=== PATIENT | female | born 1935 | race Caucasian/White ===

== ENCOUNTER → 2018-01-03 07:39 | Outpatient (CLI) | payer OTHER, SELFPAY ==
[2018-01-03 10:14] LABS: BUN Creatinine Ratio 33.8 (6-22); Blood Urea Nitrogen 27 mg/dL (7-17); Estimated Glomerular Filt Rate > 60.0 mL/min (>60)
== END ==
PROVIDERS: PCP Family Medicine; Visit Provider Internal Medicine
DX: H53.9 Unspecified visual disturbance (principal); Z01.812 Encounter for preprocedural laboratory examination
CPT/HCPCS: 36415; 82565; 84520

== ENCOUNTER → 2018-01-04 06:45 | Outpatient (CLI) | payer OTHER, SELFPAY ==
--- NOTE | 2018-01-04 06:46 | DI.MRI.S_ITS ---
PROCEDURE: MR HEAD/BRAIN WO/W CON INDICATIONS: visual changes and headaches TECHNIQUE: Noncontrast axial T1 spin echo, axial T2 fast spin echo, sagittal and axial FLAIR, coronal T2 fast spin echo, axial gradient echo, axial diffusion and ADC through the brain. After the administration of contrast, axial and coronal 3D VIBE or T1 spin echo with fat saturation through the brain. COMPARISON: None. FINDINGS: Image quality: Excellent. CSF Spaces: Basal cisterns are patent. No extra-axial fluid collections. Ventricles are normal in size and shape. There is an extra-axial mass along the anterior falx mostly right of midline which measures 4.1 x 2.9 x 4.0 CM exerting mass effect upon the surrounding brain parenchyma with no underlying edema. It demonstrates isointense T1 and T2 signal and homogeneous internal enhancement. There are several small foci of signal loss on gradient imaging. Brain: No midline shift. No acute intracranial bleeds or masses. No abnormal intracranial enhancement. The brainstem appears normal. Diffusion-weighted images demonstrate no acute ischemic insults. Foci of increased T2 signal in the subcortical and periventricular white matter. Normal intravascular flow voids are present. Skull and face: Calvarial marrow is normal in signal. Orbits appear normal. Sinuses: Sinuses and mastoids appear clear. IMPRESSION: 1. Large extra-axial mass along the falx between the frontal lobes is most consistent with a meningioma. Metastasis is possible. There is no edema or abnormal enhancement in the adjacent brain parenchyma to suggest invasion. There is moderate mass effect in the frontal lobes right greater than left. 2. Increased T2 signal in the subcortical and periventricular white matter most consistent with chronic benign ischemic change. Dictated by: Don Duong M.D. on 01/04/2018 at 12:12 Approved by: Don Duong M.D. on 01/04/2018 at 12:19
== END ==
PROVIDERS: Family Provider Family Medicine; PCP Family Medicine; Visit Provider Internal Medicine
DX: H53.9 Unspecified visual disturbance (principal); R51 Headache; R93.8 Abnormal findings on diagnostic imaging of other specified body structures
CPT/HCPCS: 70553; A9579

== ENCOUNTER 2018-02-13 16:29 | Emergency (ER) | payer OTHER, SELFPAY ==
[2018-02-13] VITALS (7 sets, daily range): BP systolic 139–194; BP diastolic 71–93; PULSE 80–90; RESP 15–18; TEMP 36.9; O2SAT 93–98; BMI 25.7
--- NOTE | 2018-02-13 17:15 | DI.CT.S_ITS ---
PROCEDURE: CT HEAD/BRAIN WO CON INDICATIONS: severe EDWARDS, vomiting. meningioma resection last week, chante TECHNIQUE: Noncontrast 4.5 mm thick angled axial sections acquired from the foramen magnum to the vertex, with coronal and sagittal reformats. For radiation dose reduction, the following was used: automated exposure control, adjustment of mA and/or kV according to patient size. COMPARISON: None. FINDINGS: Image quality: Excellent. CSF spaces: Acute subdural hematoma underlying the right frontal postoperative site with mild increased density in the remaining CSF possibly representing bilateral subacute subdural hematomas. Brain: Changes of interval meningioma resection with acute hemorrhage in the anterior interhemispheric postoperative site. Foci of increased density in the bilateral frontal lobe white matter. No masses. Skull and face: Calvarium and visualized facial bones are intact, without suspicious lesions. Sinuses: Visualized sinuses and mastoids are clear. IMPRESSION: 1. Interval interhemispheric meningioma removal which by report took place one week prior. There are acute blood products at the postoperative site. Further acute subdural hematoma underlying the right frontal craniotomy site. Increased density throughout the CSF may represent bilateral subacute subdural hematomas. 2. Foci of decreased density in the bilateral frontal white matter may represent edema, postoperative change, or encephalomalacia. 3. No brain parenchyma herniation. 4. Findings discussed by telephone ([phone]) with Dr. Lr of the emergency department at 17:50 on 02/13/2018. Dictated by: Don Duong M.D. on 02/13/2018 at 17:44 Approved by: Don Duong M.D. on 02/13/2018 at 18:02
--- NOTE | 2018-02-13 17:51 | ED.NAVMDI ---
HPI - Nausea/Vomiting/Diarrhea General Chief complaint: Nausea/Vomiting/Diarrhea Stated complaint: N/V SP BRAIN SURGERY 02/08/18 Time Seen by Provider: 02/13/18 16:40 Source: patient and family Mode of arrival: ambulatory Limitations: no limitations History of Present Illness HPI Narrative: 82-year-old female with history of meningioma status post surgical resection on February 08 presents with gradually worsening severe headache over the course of the day intractable vomiting. The patient contacted her surgeons who directed her to the closest facility for evaluation. She denies any focal neurologic findings such as blurred vision, facial weakness or numbness and tingling her extremities. She takes no blood thinners. MD complaint: nausea and vomiting Onset (ago): hour(s) Related Data Home Medications Medication Instructions Recorded Confirmed aspirin 81 mg PO QPM #0 03/20/17 02/13/18 Vitamin C 1 tab PO DAILY 02/13/18 02/13/18 Vitamin D3 1 cap PO DAILY 02/13/18 02/13/18 ibuprofen 600 mg PO Q6HP PRN 02/13/18 02/13/18 latanoprost 1 drp OPHTHALMIC (EYE) BEDTIME 02/13/18 02/13/18 multivitamin 1 tab PO DAILY 02/13/18 02/13/18 Previous Rx's Medication Instructions Recorded valsartan [Diovan] 40 mg PO QDAY #90 tab 08/22/17 Allergies Allergy/AdvReac Type Severity Reaction Status Date / Time latex [LATEX] Allergy Unknown Unverified 01/04/18 16:37 levofloxacin [LEVOFLOXACIN] Allergy Unknown Unverified 01/04/18 16:37 gandolium MRI dye Allergy Uncoded 02/13/18 19:02 Review of Systems Review of Systems All systems reviewed & are unremarkable except as noted in HPI and below Constitutional Denies chills, Denies fever(s), Denies lethargy and Denies weakness Eyes Denies change in vision, Denies eye discharge, Denies irritation and Denies loss of vision ENT Ears, Nose, Mouth, and Throat: Denies change in voice, Denies neck pain and Denies sore throat Cardiovascular Denies chest pain, Denies irregular heart rhythm, Denies lightheadedness, Denies palpitations, Denies dyspnea, Denies dyspnea on exertion and Denies orthopnea Respiratory Denies cough, Denies dyspnea, Denies dyspnea on exertion and Denies wheezing Gastrointestinal Gastrointestinal: Denies abdominal pain, Denies change in bowel habits, Denies diarrhea, Reports nausea and Reports vomiting Genitourinary Denies hematuria, Denies flank pain, Denies urinary incontinence and Denies urinary urgency Musculoskeletal Denies neck pain Integumentary/Breasts Denies pruritus, Denies erythema, Denies rash and Denies wounds Neurologic Denies confusion, Denies loss of vision and Denies weakness Psychiatric Denies anxiety, Denies confusion, Denies depression, Denies homicidal ideation and Denies suicidal ideation Endocrine Denies palpitations Hematologic/Lymphatic Denies easy bruising Allergic/Immunologic Denies wheezing [facility] Social History household members: spouse Smoking Status: Former smoker Exam Initial Vital Signs Initial Vital Signs: Vital Signs Temperature 98.5 F 02/13/18 16:59 Pulse Rate 85 02/13/18 16:59 Respiratory Rate 18 02/13/18 16:59 Blood Pressure 194/93 H 02/13/18 16:59 Pulse Oximetry 98 02/13/18 16:59 Const General: cooperative and well developed Nutritional Appearance: well nourished Orientation: alert, awake, oriented x3 and not confused HENNH Head: other (Incision is clean, dry and intact. No drainage) Ears: external ears normal and TM's normal bilaterally Nose: external nose normal and No nasal discharge Face and sinus: sinuses nontender, face symmetric, no sinus tenderness and No dry mucous membranes Mouth: oral mucosae normal and moist mucous membranes Teeth and gingiva: dentition normal Throat: tonsils normal and uvula midline Eyes General: appearance normal, both eyes and all related structures Eyelids: eyelids normal Conjunctivae: conjunctivae normal Sclera: sclerae normal Pupils: PERRL EOM: EOM intact bilaterally Neck Neck: normal visual inspection, trachea midline, No lymphadenopathy, No midline deformity and No JVD Lymphatic: No lymphedema Chest Chest: normal inspection of the chest Resp Effort & Inspection: normal respiratory effort, able to speak in complete sentences, no respiratory distress and no use of accessory muscles Auscultation: clear to auscultation bilaterally, no rales, no rhonchi and no wheezes Cardio Rate: regular rate Rhythm: regular rhythm Heart Sounds: no click, no gallops, no murmurs and no rubs Pulses: normal peripheral pulses GI Inspection: non-distended Palpation: soft, no hepatosplenomegaly, No guarding, No pulsatile mass and No tender Auscultation: normal bowel sounds Back/Spine/Pelvis Back: No CVA tenderness Cervical Spine: cervical ROM normal and No pain with cervical ROM Thoracic/Lumbar Spine: thoracic and lumbar spine normal to inspection Skin General: no rashes or lesions noted, No jaundice and No petechiae Neuro General: alert, oriented x3, gait normal and no focal motor deficits Speech: speech normal Extrem General: full ROM, no clubbing, cyanosis or edema, no pedal edema and no calf tenderness Psych Appearance: well kempt Mental Status: mental status grossly normal Attitude: cooperative Thought Content: normal and suicidality Judgment: judgment good Course Orders Ordered: ED Orders 02/13/18 17:15 CT head/brain wo con Stat 02/13/18 18:00 Basic Metabolic Panel Stat Complete Blood Count AUTO DIFF Stat Nicardipine HCl 25 mg/ Sodium (Chloride) 250 mls @ 50 mls/hr IV TITRATE KATIA; Protocol Last Titration: 02/13/18 19:47 Dose: 10 mg/hr, 100 mls/hr Titration: 02/13/18 19:35 Dose: 7.5 mg/hr, 75 mls/hr Admin: 02/13/18 19:09 Dose: 5 mg/hr, 50 mls/hr Sodium Chloride (Normal Saline 0.9%) 1,000 mls @ 100 mls/hr IV CONT KATIA Last Infusion: 02/13/18 19:19 Dose: 0 mls/hr Admin: 02/13/18 19:06 Dose: 100 mls/hr Discontinued Medications Ondansetron HCl (Zofran) 4 mg IV NOW ONE Stop: 02/13/18 17:58 Last Admin: 02/13/18 18:05 Dose: 4 mg Consultations Consultation #1: Immediately upon receipt of head CT a call placed to the [facility] transfer center. [facility] put on standby. Request to get patient coming to [facility] regardless of bed status but asked to wait for neurosurgeon and bed status. Neurosurgery is happy to accept. They request Nicardipine drip and strict BP control < 140. This dictates admission to Neuro ICU. [facility] is happy to accept. Awaiting bed assignment Time: 18:29 Consultation #2: Bed [id number] assigned. ALBobyW at bedside loading patient. Time: 19:55 Vital Signs - 8 hr 02/13/18 16:59 02/13/18 17:15 02/13/18 18:01 Temperature 98.5 F Pulse Rate 85 82 83 Respiratory Rate 18 18 18 Blood Pressure 194/93 H Blood Pressure [Left Arm] 168/83 H Blood Pressure [Right Arm] 154/88 H Pulse Oximetry 98 97 98 02/13/18 18:35 02/13/18 19:08 02/13/18 19:47 Temperature Pulse Rate 81 80 90 Respiratory Rate 18 15 16 Blood Pressure Blood Pressure [Left Arm] 174/87 H 155/76 H 139/71 H Blood Pressure [Right Arm] Pulse Oximetry 97 93 97 MDM - Nausea/Vomiting/Diarrhea Medical Records Attestation: I reviewed the patient's medical records. Lab Data Result diagrams: 02/13/18 18:00 02/13/18 18:00 Lab Results 02/13/18 02/13/18 Range/Units 18:00 18:00 WBC 6.6 (4.5-11.0) X10^3/uL RBC 4.06 (4.0-5.2) X10^6/uL Hgb 12.6 (12.0-16.0) g/dL Hct 36.9 (36-46) % MCV 90.7 (80-100) fL MCH 31.0 (26-34) PG MCHC 34.2 (30-36) % RDW 13.7 (11.6-14.8) % Plt Count 202 (150-400) X10^3/uL Neut % (Auto) 79.3 H (50-75) % Lymph % (Auto) 14.1 L (25-40) % Otoe % (Auto) 5.7 (3-14) % Eos % (Auto) 0.5 L (2-4) % Baso % (Auto) 0.4 (0-2) % Neut # (Auto) 5200 (5330-3882) /uL Sodium 139 (137-145) mmol/L Potassium 4.1 (3.4-5.1) mmol/L Chloride 97 L (98-107) mmol/L Carbon Dioxide 31 (22-32) mmol/L BUN 21 H (7-17) mg/dL Creatinine 0.70 (0.52-1.04) mg/dL Estimated GFR > 60.0 (>60) mL/min BUN/Creatinine Ratio 30.0 H (6-22) Glucose 132 H (80-110) mg/dL Calcium 9.3 (8.4-10.2) mg/dL Imaging Data CT scan - head: Radiologist's impression: PROCEDURE: CT HEAD/BRAIN WO CON INDICATIONS: severe EDWARDS, vomiting. meningioma resection last week, chante TECHNIQUE: Noncontrast 4.5 mm thick angled axial sections acquired from the foramen magnum to the vertex, with coronal and sagittal reformats. For radiation dose reduction, the following was used: automated exposure control, adjustment of mA and/or kV according to patient size. COMPARISON: None. FINDINGS: Image quality: Excellent. CSF spaces: Acute subdural hematoma underlying the right frontal postoperative site with mild increased density in the remaining CSF possibly representing bilateral subacute subdural hematomas. Brain: Changes of interval meningioma resection with acute hemorrhage in the anterior interhemispheric postoperative site. Foci of increased density in the bilateral frontal lobe white matter. No masses. Skull and face: Calvarium and visualized facial bones are intact, without suspicious lesions. Sinuses: Visualized sinuses and mastoids are clear. IMPRESSION: 1. Interval interhemispheric meningioma removal which by report took place one week prior. There are acute blood products at the postoperative site. Further acute subdural hematoma underlying the right frontal craniotomy site. Increased density throughout the CSF may represent bilateral subacute subdural hematomas. 2. Foci of decreased density in the bilateral frontal white matter may represent edema, postoperative change, or encephalomalacia. 3. No brain parenchyma herniation. 4. Findings discussed by telephone ([phone]) with Dr. Lr of the emergency department at 17:50 on 02/13/2018. Dictated by: Don Duong M.D. on 02/13/2018 at 17:44 Approved by: Don Duong M.D. on 02/13/2018 at 18:02 Critical Care Time Critical Care Time: Yes Total Critical Care Time: 60 Attestation: The high probability of a clinically significant, sudden or life threatening deterioration of the [neurologic] system(s) required my full and direct attention, intervention and personal management. The aggregate critical care time was [60] minutes. This time is in addition to time spent performing reported procedures but includes the following: [x] Data Review and interpretation [x] Patient assessment and monitoring of vital signs [x] Documentation [x] Medication orders and management Discharge Plan Departure Patient Disposition: [facility] Clinical Impression: Acute subdural hematoma Prescriptions: No Action aspirin 81 MG tablet,delayed release (DR/EC) 81 mg PO QPM Qty: 0 RF: 0 valsartan [Diovan] 40 MG tablet 40 mg PO QDAY Qty: 90 RF: 3 multivitamin Tablet 1 tab PO DAILY RF: 0 latanoprost 0.005 % Drops 1 drp ophthalmic (eye) BEDTIME RF: 0 Vitamin C 1 tab PO DAILY RF: 0 Vitamin D3 1 cap PO DAILY RF: 0 ibuprofen 600 MG tablet 600 mg PO Q6HP PRN (Reason: Pain, Mild) RF: 0
[2018-02-13] MEDS: ONDANSETRON 4 MG/2 ML INJ IV (18:05)
[2018-02-13 18:08] LABS: Add Manual Diff / Slide Review NO; Basophils Percent Auto 0.4 % (0-2); Eosinophils Percent Auto 0.5 % (2-4); Hematocrit 36.9 % (36-46); Hemoglobin 12.6 g/dL (12.0-16.0); Lymphocytes Percent Auto 14.1 % (25-40); Mean Corpuscular HGB Conc 34.2 % (30-36); Mean Corpuscular Volume 90.7 fL (80-100); Monocytes Percent Auto 5.7 % (3-14); Neutrophils Absolute Auto 5200 /uL (3000-5900); Neutrophils Percent Auto 79.3 % (50-75); Platelet Count 202 X10^3/uL (150-400); Red Blood Cell Count 4.06 X10^6/uL (4.0-5.2); Red Cell Distribution Width 13.7 % (11.6-14.8); White Blood Cell Count 6.6 X10^3/uL (4.5-11.0)
[2018-02-13 18:20] LABS: Blood Urea Nitrogen 21 mg/dL (7-17); Calcium 9.3 mg/dL (8.4-10.2); Carbon Dioxide 31 mmol/L (22-32); Chloride 97 mmol/L (98-107); Estimated Glomerular Filt Rate > 60.0 mL/min (>60); Glucose 132 mg/dL (80-110); HEMOLYSIS < 15 (0-50); Potassium 4.1 mmol/L (3.4-5.1); Sodium 139 mmol/L (137-145)
--- NOTE | 2018-02-13 19:02 | PC.NURSE ---
pt is resting in bed with and son at side. IVF infusing TKO. pt has not had any nausea or vomiting episodes after being situated in bed on arrival. Small amount of bile in emesis bag when pt entered department. Advised she will be taken via airlift to a hosp in [place] regarding her positive head CT. pt denies any further questions at this time
[2018-02-13] MEDS: SODIUM CHLORIDE 0.9% 1,000 ML 100 ML IV (19:06)
[2018-02-13] MEDS: NICARDIPINE 25 MG in SODIUM CHLORIDE 0.9% 240 ML 50 ML IV (19:09)
--- NOTE | 2018-02-13 19:52 | PC.NURSE ---
BP at goal of under 140 sys. Current BP 139/71 HR 90. pt tolerating well. Airlift in ED for transfer
== END 2018-02-13 20:20 | disposition short-term general hospital (02) ==
PROVIDERS: Emergency Provider Emergency Medicine; Family Provider Family Medicine; PCP Family Medicine
DX: S06.5X9A Traumatic subdural hemorrhage with loss of consciousness of unspecified duration, initial encounter (principal); Z98.890 Other specified postprocedural states
CPT/HCPCS: 36591; 70450; 80048; 85025; 96365; 96375; 99284; J2405

== ENCOUNTER → 2018-02-16 09:05 | Outpatient (CLI) | payer OTHER, SELFPAY | PROVIDERS: Family Provider Family Medicine; PCP Family Medicine; Visit Provider Family Medicine | DX: R94.31 Abnormal electrocardiogram [ECG] [EKG] (principal) | CPT/HCPCS: 93005 ==

== ENCOUNTER → 2018-03-01 09:26 | Outpatient (CLI) | payer OTHER, SELFPAY ==
--- NOTE | 2018-03-01 09:28 | DI.ECHO.S_ITS ---
[facility]---------+ [facility] +---------+ : : [address] : : : : [id number] : : : : Phone: [phone] Echocardiogram Report + + :Name: EJ BRAUN Study Date: 03/01/2018 Height: 63 in : :[facility] Weight: 145 lb : : Gender: Female BSA: 1.7 m2 : :: 1935 Age: 82 yrs BP: 146/80 mmHg: :Reason For Study: Conduction Disorder, LBBB : : Performed By: Pushpa Owen : :Referring: GABE LEY : + + Interpretation Summary 1. Normal left ventricular size and wall thickness with an estimated EF of 45 to 50% 2. Normal right ventricular size and systolic function. The estimated RVSP is 27 mm Hg. The estimated right atrial pressure is low. 3. No evidence for significant valvular pathology. There is no old study available for review. Procedure: A two-dimensional transthoracic echocardiogram with color flow and Doppler was performed. The study quality was technically adequate. There is no prior echocardiogram noted for this patient. The heart rate ranged between 71-76 bpm during the study. Left Ventricle: The left ventricle is normal in size. There is normal left ventricular wall thickness. The ejection fraction is estimated to be 45-50%. Septal motion is consistent with conduction abnormality. Assessment of diastolic parameters indicates a relaxation abnormality of the left ventricle, consistent with normal filling pressures. Right Ventricle: The right ventricle is normal in size and function. Atria: The left atrial size is normal. Right atrial size is normal. The interatrial septum is intact with no evidence for an atrial septal defect. Mitral Valve: The mitral valve leaflets appear mildly thickened, but open well. There is mild mitral annular calcification. There is mild mitral regurgitation. Aortic Valve: The aortic valve is trileaflet. The aortic valve opens well. The aortic valve is mildly calcified. No aortic regurgitation is present. Tricuspid Valve: The tricuspid valve leaflets are thin and pliable. There is moderate tricuspid regurgitation. The right ventricular systolic pressure is estimated at 27 mmHg assuming a right atrial pressure of 3 mm Hg. Pulmonic Valve: The pulmonic valve is not well seen, but is grossly normal. There is trace pulmonic regurgitation. Great Vessels: The aortic root is normal size. The ascending aorta is mildly enlarged. The IVC is of normal diameter and collapses greater than 50% with a sniff. This suggests a low right atrial pressure of 3 mm Hg. Pericardium/ Pleura There is no pericardial effusion. There is no pleural effusion. MMode/2D Measurements & Calculations LVIDd: 4.3 cm Ao root diam: 3.1 cm LVIDs: 3.4 cm Aortic Jxn: 2.6 cm FS: 19.9 % asc Aorta Diam: 3.9 cm EPSS: 0.88 cm Ao Arch Diam (Prox Trans): 2.3 cm IVSd: 0.87 cm LVPWd: 0.95 cm LV elaine. diameter/BSA (cm/m^2): 2.5 LV sys. diameter/BSA (cm/m^2): 2.0 LA dimension: 2.9 cm RA long axis: 4.7 cm LA A2 area: 19.7 cm2 RA area: 15.2 cm2 LA A4 area: 14.3 cm2 RA vol: 42.2 ml LA length (vol): 4.8 cm RA : 25.0 ml/m2 LA vol: 49.9 ml IVC diam: 1.5 cm LA vol index: 29.6 ml/m2 RVDd major: 5.9 cm RVD1 (basal): 3.1 cm RVD2 (mid): 2.6 cm Doppler Measurements & Calculations Ao V2 max: 148.4 cm/sec MV E max emmanuel: 75.0 cm/sec Ao V2 mean: 102.4 cm/sec MV A max emmanuel: 113.7 cm/sec Ao max P.8 mmHg MV E/A: 0.66 Ao mean P.7 mmHg Med Peak E' Emmanuel: 4.9 cm/sec Ao V2 VTI: 29.5 cm E/E' med: 15.2 Lat Peak E' Emmanuel: 5.3 cm/sec E/E' lat: 14.3 E/e' average: 14.7 MV dec time: 0.25 sec MV P1/2t: 75.2 msec TR max emmanuel: 243.3 cm/sec MV P1/2t max emmanuel: 73.7 cm/sec TR max P.7 mmHg MVA(P1/2t): 2.9 cm2 PA V2 max: 89.1 cm/sec PA V2 mean: 57.6 cm/sec PA mean P.5 mmHg PA Accel Time: 0.10 sec Reading Physician:IAM
== END ==
PROVIDERS: Family Provider Family Medicine; PCP Family Medicine; Visit Provider Family Medicine
DX: I44.7 Left bundle-branch block, unspecified (principal); I08.1 Rheumatic disorders of both mitral and tricuspid valves
CPT/HCPCS: 93306

== ENCOUNTER 2018-08-12 17:11 | Emergency (ER) | payer OTHER, MEDICARE, SELFPAY ==
[2018-08-12 17:28] VITALS: BP 126/80; PULSE 110; RESP 20; TEMP 36.5; O2SAT 98; BMI 25.7
--- NOTE | 2018-08-12 18:01 | ED.SKABFB ---
HPI - Skin/Abscess/Foreign Bdy <Renetta Aragon, REHABILITATION COUNSELLOR-BC - Last Filed: 08/12/18 21:16> General Chief complaint: Skin/Abscess/Foreign Body Stated complaint: RASH ALL OVER HER BODY,CRAMPS,UNCOMFORTABLE Time Seen by Provider: 08/12/18 17:44 Source: patient and family Mode of arrival: ambulatory Limitations: no limitations History of Present Illness HPI narrative: Patient is an 82-year-old female former smoker with history of meningioma as well as subdural hematoma who presents with a chief complaint of a rash all over her body, lower abdominal cramping, chest pain that started 30 min ago and low-grade fevers. She states she noted low-grade fever starting last night the 99-100 degree range. She states that she started having a rash originating from her left axilla for going throughout her body throughout the entire day. She states it is similar to previous allergic reaction but she denies any new creams or lotions soaps etc. She denies any new food exposure medication exposure. She states the rash is very itchy. She has not taken anything other than topical Benadryl, which helped for short amount of time. She also complains of lower abdominal cramping that started last night as well as mucousy loose bowel movements. She also complains of chest pain that started 30 min ago, which she attributes to anxiety at this point time. Chest pain is nonradiating and rated a 2/10. She denies any nausea or vomiting. She denies any cough congestion or shortness of breath. She denies any dysuria urgency or frequency. Related Data Home Medications Medication Instructions Recorded Confirmed aspirin 81 mg PO QPM #0 03/20/17 03/27/18 Vitamin C 1 tab PO DAILY 02/13/18 03/27/18 Vitamin D3 1 cap PO DAILY 02/13/18 03/27/18 ibuprofen 600 mg PO Q6HP PRN 02/13/18 03/27/18 latanoprost 1 drp OPHTHALMIC (EYE) BEDTIME 02/13/18 03/27/18 multivitamin 1 tab PO DAILY 02/13/18 03/27/18 Previous Rx's Medication Instructions Recorded valsartan [Diovan] 40 mg PO QDAY #90 tab 08/22/17 lisinopril 20 mg tablet 20 mg PO DAILY #90 tab 02/20/18 fluconazole 150 mg tablet 150 mg PO ONCE #2 tab 03/20/18 prednisone 40 mg PO DAILY 4 Days #8 tab 08/12/18 Allergies Allergy/AdvReac Type Severity Reaction Status Date / Time latex [LATEX] Allergy Unknown Verified 08/12/18 17:27 levofloxacin [LEVOFLOXACIN] Allergy Unknown Verified 08/12/18 17:27 gandolium MRI dye Allergy Uncoded 08/12/18 17:27 Review of Systems <SIXTO Park - Last Filed: 08/12/18 21:16> Review of Systems GENERAL: Denies chills, fatigue, malaise, fever, sweats. HEENT: Denies sinus pain, ear pain, sore throat, difficulty swallowing, dizziness. RESPIRATORY: See HPI CARDIOVASCULAR: See HPI GASTROINTESTINAL: See HPI : Denies dysuria, frequency, incontinence, hematuria, urinary retention. MUSCULOSKELETAL: denies weakness, joint pain, or bony pain SKIN: See HPI NEUROLOGIC: Denies weakness, headache, numbness, change in speech, confusion, seizures, incoordination. PSYCHIATRIC: No concerning psychosocial issues. 12 point review of systems is negative except for those stated above Exam <SIXTO Park - Last Filed: 08/12/18 21:16> Narrative Exam Narrative: GENERAL: This is a well-nourished, well-developed patient, lying on stretcher HEAD: Atraumatic. Normocephalic. No temporal or scalp tenderness. EYES: Pupils equal round and reactive. Extraocular motions intact. No scleral icterus. No injection or drainage. ENT: Nose without bleeding, purulent drainage or septal hematoma. Throat without erythema, tonsillar hypertrophy or exudate. Uvula midline. Airway patent. NECK: Trachea midline. No JVD or lymphadenopathy. Supple, nontender, no meningeal signs. CARDIOVASCULAR: Regular rate and rhythm without murmurs, gallops, or rubs. RESPIRATORY: Clear to auscultation. Breath sounds equal bilaterally. No wheezes, rales, or rhonchi. No increased respiratory effort. No cough on exam. GASTROINTESTINAL: Abdomen soft, , nondistended. No hepato-splenomegaly, or palpable masses. No guarding. Active bowel sounds all 4 quadrants. Diffuse tenderness suprapubic area. EXTREMITIES: No clubbing, cyanosis, or edema. No joint tenderness, effusion, or edema noted. BACK: Nontender without deformity or crepitance. No flank tenderness. NEURO: AOx3. SKIN: uticaria noted over bilateral arms, trunk bilateral legs. Initial Vital Signs Initial Vital Signs: Vital Signs Temperature 97.7 F 08/12/18 17:28 Pulse Rate 110 H 08/12/18 17:28 Respiratory Rate 08/12/18 17:28 Blood Pressure 126/80 08/12/18 17:28 Pulse Oximetry 98 08/12/18 17:28 <Marylin Garcia DO - Last Filed: 08/12/18 23:07> Initial Vital Signs Initial Vital Signs: Vital Signs Temperature 97.7 F 08/12/18 17:28 Pulse Rate 110 H 08/12/18 17:28 Respiratory Rate 08/12/18 17:28 Blood Pressure 126/80 08/12/18 17:28 Pulse Oximetry 98 08/12/18 17:28 Course <SANGEETA Park-BC - Last Filed: 08/12/18 21:16> Orders Ordered: ED Orders 08/12/18 17:56 EKG-12 Lead Stat 08/12/18 18:05 Amylase Stat Complete Blood Count AUTO DIFF Stat Comprehensive Metabolic Panel Stat Lipase Stat Prothrombin Time INR Stat Troponin & CK Cardiac Panel Stat 08/12/18 19:14 Urine Microscopic Stat Discontinued Medications Diphenhydramine HCl (Benadryl) 25 mg IV NOW ONE Stop: 08/12/18 18:01 Last Admin: 08/12/18 18:16 Dose: 25 mg Famotidine (Pepcid) 20 mg in 50 mls @ 200 mls/hr IV NOW ONE Stop: 08/12/18 18:14 Last Infusion: 08/12/18 18:30 Dose: 0 mls/hr Admin: 08/12/18 18:16 Dose: 200 mls/hr Methylprednisolone (Solu-Medrol 125 Mg Vial) 125 mg IV NOW ONE Stop: 08/12/18 18:01 Last Admin: 08/12/18 18:16 Dose: 125 mg Reevaluation(s) Reevaluation #1: Patient states that hives have improved after administration of Solu-Medrol, Benadryl and Pepcid. Discussed waiting for lab results. Patient denies any needs at this point time. Time: 18:40 Vital Signs - 8 hr 08/12/18 17:28 08/12/18 18:23 08/12/18 19:42 Temperature 97.7 F 98.7 F Pulse Rate 110 H 81 79 Respiratory Rate 20 18 16 Blood Pressure 126/80 Blood Pressure [Right Arm] 117/70 117/63 Pulse Oximetry 98 97 97 08/12/18 20:46 Temperature 98.4 F Pulse Rate 86 Respiratory Rate 16 Blood Pressure 118/77 Blood Pressure [Right Arm] Pulse Oximetry 97 <Marylin Garcia DO - Last Filed: 08/12/18 23:07> Orders Ordered: ED Orders 08/12/18 17:56 EKG-12 Lead Stat 08/12/18 18:05 Amylase Stat Complete Blood Count AUTO DIFF Stat Comprehensive Metabolic Panel Stat Lipase Stat Prothrombin Time INR Stat Troponin & CK Cardiac Panel Stat 08/12/18 19:14 Urine Microscopic Stat Discontinued Medications Diphenhydramine HCl (Benadryl) 25 mg IV NOW ONE Stop: 08/12/18 18:01 Last Admin: 08/12/18 18:16 Dose: 25 mg Famotidine (Pepcid) 20 mg in 50 mls @ 200 mls/hr IV NOW ONE Stop: 08/12/18 18:14 Last Infusion: 08/12/18 18:30 Dose: 0 mls/hr Admin: 08/12/18 18:16 Dose: 200 mls/hr Methylprednisolone (Solu-Medrol 125 Mg Vial) 125 mg IV NOW ONE Stop: 08/12/18 18:01 Last Admin: 08/12/18 18:16 Dose: 125 mg Vital Signs - 8 hr 08/12/18 17:28 08/12/18 18:23 08/12/18 19:42 Temperature 97.7 F 98.7 F Pulse Rate 110 H 81 79 Respiratory Rate 20 18 16 Blood Pressure 126/80 Blood Pressure [Right Arm] 117/70 117/63 Pulse Oximetry 98 97 97 08/12/18 20:46 Temperature 98.4 F Pulse Rate 86 Respiratory Rate 16 Blood Pressure 118/77 Blood Pressure [Right Arm] Pulse Oximetry 97 MDM - Skin/Abscess/Foreign Bdy <AKASH Park - Last Filed: 08/12/18 21:16> Lab Data Result diagrams: 08/12/18 18:05 08/12/18 18:05 Lab Results 08/12/18 08/12/18 08/12/18 Range/Units 18:05 18:05 18:05 WBC 9.7 (4.5-11.0) X10^3/uL RBC 4.35 (4.0-5.2) X10^6/uL Hgb 13.3 (12.0-16.0) g/dL Hct 39.8 (36-46) % MCV 91.5 (80-100) fL MCH 30.6 (26-34) PG MCHC 33.5 (30-36) % RDW 14.1 (11.6-14.8) % Plt Count 177 (150-400) X10^3/uL Neut % (Auto) 78.2 H (50-75) % Lymph % (Auto) 13.7 L (25-40) % [place] % (Auto) 7.2 (3-14) % Eos % (Auto) 0.6 L (2-4) % Baso % (Auto) 0.3 (0-2) % Neut # (Auto) 7600 H (4858-5293) /uL Lymph # (Auto) 1300 (9496-4204) /uL [place] # (Auto) 700 (0-900) /uL Eos # (Auto) 100 (0-450) /uL Baso # (Auto) 0 (0-100) /uL PT 13.9 H (10.1-12.7) SECONDS INR 1.2 (0.9-1.3) Sodium 138 (137-145) mmol/L Potassium 4.0 (3.4-5.1) mmol/L Chloride 103 (98-107) mmol/L Carbon Dioxide 25 (22-32) mmol/L BUN 23 H (7-17) mg/dL Creatinine 0.80 (0.52-1.04) mg/dL Estimated GFR > 60.0 (>60) mL/min BUN/Creatinine Ratio 28.8 H (6-22) Glucose 196 H (80-110) mg/dL Calcium 9.0 (8.4-10.2) mg/dL Total Bilirubin 0.9 (0.2-1.3) mg/dL AST 21 (14-36) IU/L ALT 17 (9-52) IU/L Alkaline Phosphatase 41 (38-126) U/L Total Creatine Kinase (30-135) U/L CK-MB (CK-2) CK-MB (CK-2) Rel Index Troponin I (0.01-0.034) ng/mL Total Protein 6.7 (6.3-8.2) g/dL Albumin 3.9 (3.5-5.0) g/dL Globulin 2.8 (1.7-4.1) g/dL Albumin/Globulin Ratio 1.4 (1.0-2.8) Amylase 69 (30-110) U/L Lipase 54 (23-300) U/L Urine RBC (0-5/HPF) Urine WBC (0-5/HPF) Ur Squamous Epith Cells Urine Bacteria (None) Ur Culture Indicated? 08/12/18 08/12/18 Range/Units 18:05 19:14 WBC (4.5-11.0) X10^3/uL RBC (4.0-5.2) X10^6/uL Hgb (12.0-16.0) g/dL Hct (36-46) % MCV (80-100) fL MCH (26-34) PG MCHC (30-36) % RDW (11.6-14.8) % Plt Count (150-400) X10^3/uL Neut % (Auto) (50-75) % Lymph % (Auto) (25-40) % [place] % (Auto) (3-14) % Eos % (Auto) (2-4) % Baso % (Auto) (0-2) % Neut # (Auto) (4739-7394) /uL Lymph # (Auto) (0761-6224) /uL [place] # (Auto) (0-900) /uL Eos # (Auto) (0-450) /uL Baso # (Auto) (0-100) /uL PT (10.1-12.7) SECONDS INR (0.9-1.3) Sodium (137-145) mmol/L Potassium (3.4-5.1) mmol/L Chloride (98-107) mmol/L Carbon Dioxide (22-32) mmol/L BUN (7-17) mg/dL Creatinine (0.52-1.04) mg/dL Estimated GFR (>60) mL/min BUN/Creatinine Ratio (6-22) Glucose (80-110) mg/dL Calcium (8.4-10.2) mg/dL Total Bilirubin (0.2-1.3) mg/dL AST (14-36) IU/L ALT (9-52) IU/L Alkaline Phosphatase (38-126) U/L Total Creatine Kinase 63 (30-135) U/L CK-MB (CK-2) TNP CK-MB (CK-2) Rel Index TNP Troponin I < 0.012 (0.01-0.034) ng/mL Total Protein (6.3-8.2) g/dL Albumin (3.5-5.0) g/dL Globulin (1.7-4.1) g/dL Albumin/Globulin Ratio (1.0-2.8) Amylase (30-110) U/L Lipase (23-300) U/L Urine RBC 0-1/hpf (0-5/HPF) Urine WBC None seen (0-5/HPF) Ur Squamous Epith Cells 1-5 /hpf Urine Bacteria Few (2-10) H (None) Ur Culture Indicated? Cult not indicated Urine Dip Bedside Urine Glucose Negative Bedside Urine Bilirubin - Negative Bedside Urine Ketone - Negative Urine Specific [place] 1.015 Bedside Urine Occult Blood +/- Bedside Urine pH 5.5 Bedside Urine Protein - Negative Bedside Urine Urobilinogen - Negative Bedside Urine Nitrite - Negative Bedside Urine Leukocytes - Negative Esterase ECG Data Attestation: I personally reviewed and interpreted this ECG as follows: Interpretation: Sinus rhythm. Ventricular rate 79. No ectopy noted. Left bundle branch block noted. QRS 140. MDM Narrative Medical decision making narrative: The patient's uticaria responded well to IV Benadryl, Solu-Medrol and Pepcid. She felt much improved and was ready to go home. She states her lower abdominal cramping and chest pain resolved as well. I discussed at length further workup including a rectal exam given her complaints of possible bloody stool, which she declined. I discussed doing a 3 hr troponin for a full cardiac rule out and she declined. Overall uncomfortable this is she is afebrile, hemodynamically stable, does not have an elevated troponin or low H&H. She does not have an acute abdomen on exam. I discussed at length return precautions to the emergency department including chest pain, shortness of breath, concern for stroke or heart attack as well as oral swelling and difficulty breathing. Patient and stated understanding and had no questions or concerns upon discharge. <Marylin Garcia, - Last Filed: 08/12/18 23:07> Lab Data Lab Results 08/12/18 08/12/18 08/12/18 Range/Units 18:05 18:05 18:05 WBC 9.7 (4.5-11.0) X10^3/uL RBC 4.35 (4.0-5.2) X10^6/uL Hgb 13.3 (12.0-16.0) g/dL Hct 39.8 (36-46) % MCV 91.5 (80-100) fL MCH 30.6 (26-34) PG MCHC 33.5 (30-36) % RDW 14.1 (11.6-14.8) % Plt Count 177 (150-400) X10^3/uL Neut % (Auto) 78.2 H (50-75) % Lymph % (Auto) 13.7 L (25-40) % [place] % (Auto) 7.2 (3-14) % Eos % (Auto) 0.6 L (2-4) % Baso % (Auto) 0.3 (0-2) % Neut # (Auto) 7600 H (9308-8871) /uL Lymph # (Auto) 1300 (8835-9817) /uL [place] # (Auto) 700 (0-900) /uL Eos # (Auto) 100 (0-450) /uL Baso # (Auto) 0 (0-100) /uL PT 13.9 H (10.1-12.7) SECONDS INR 1.2 (0.9-1.3) Sodium 138 (137-145) mmol/L Potassium 4.0 (3.4-5.1) mmol/L Chloride 103 (98-107) mmol/L Carbon Dioxide 25 (22-32) mmol/L BUN 23 H (7-17) mg/dL Creatinine 0.80 (0.52-1.04) mg/dL Estimated GFR > 60.0 (>60) mL/min BUN/Creatinine Ratio 28.8 H (6-22) Glucose 196 H (80-110) mg/dL Calcium 9.0 (8.4-10.2) mg/dL Total Bilirubin 0.9 (0.2-1.3) mg/dL AST 21 (14-36) IU/L ALT 17 (9-52) IU/L Alkaline Phosphatase 41 (38-126) U/L Total Creatine Kinase (30-135) U/L CK-MB (CK-2) CK-MB (CK-2) Rel Index Troponin I (0.01-0.034) ng/mL Total Protein 6.7 (6.3-8.2) g/dL Albumin 3.9 (3.5-5.0) g/dL Globulin 2.8 (1.7-4.1) g/dL Albumin/Globulin Ratio 1.4 (1.0-2.8) Amylase 69 (30-110) U/L Lipase 54 (23-300) U/L Urine RBC (0-5/HPF) Urine WBC (0-5/HPF) Ur Squamous Epith Cells Urine Bacteria (None) Ur Culture Indicated? 08/12/18 08/12/18 Range/Units 18:05 19:14 WBC (4.5-11.0) X10^3/uL RBC (4.0-5.2) X10^6/uL Hgb (12.0-16.0) g/dL Hct (36-46) % MCV (80-100) fL MCH (26-34) PG MCHC (30-36) % RDW (11.6-14.8) % Plt Count (150-400) X10^3/uL Neut % (Auto) (50-75) % Lymph % (Auto) (25-40) % [place] % (Auto) (3-14) % Eos % (Auto) (2-4) % Baso % (Auto) (0-2) % Neut # (Auto) (0836-2959) /uL Lymph # (Auto) (1695-8153) /uL [place] # (Auto) (0-900) /uL Eos # (Auto) (0-450) /uL Baso # (Auto) (0-100) /uL PT (10.1-12.7) SECONDS INR (0.9-1.3) Sodium (137-145) mmol/L Potassium (3.4-5.1) mmol/L Chloride (98-107) mmol/L Carbon Dioxide (22-32) mmol/L BUN (7-17) mg/dL Creatinine (0.52-1.04) mg/dL Estimated GFR (>60) mL/min BUN/Creatinine Ratio (6-22) Glucose (80-110) mg/dL Calcium (8.4-10.2) mg/dL Total Bilirubin (0.2-1.3) mg/dL AST (14-36) IU/L ALT (9-52) IU/L Alkaline Phosphatase (38-126) U/L Total Creatine Kinase 63 (30-135) U/L CK-MB (CK-2) TNP CK-MB (CK-2) Rel Index TNP Troponin I < 0.012 (0.01-0.034) ng/mL Total Protein (6.3-8.2) g/dL Albumin (3.5-5.0) g/dL Globulin (1.7-4.1) g/dL Albumin/Globulin Ratio (1.0-2.8) Amylase (30-110) U/L Lipase (23-300) U/L Urine RBC 0-1/hpf (0-5/HPF) Urine WBC None seen (0-5/HPF) Ur Squamous Epith Cells 1-5 /hpf Urine Bacteria Few (2-10) H (None) Ur Culture Indicated? Cult not indicated Urine Dip Bedside Urine Glucose Negative Bedside Urine Bilirubin - Negative Bedside Urine Ketone - Negative Urine Specific [place] 1.015 Bedside Urine Occult Blood +/- Bedside Urine pH 5.5 Bedside Urine Protein - Negative Bedside Urine Urobilinogen - Negative Bedside Urine Nitrite - Negative Bedside Urine Leukocytes - Negative Esterase Discharge Plan Departure Patient Disposition: Home Clinical Impression: Acute urticaria, Abdominal pain, Chest pain Discharge Date/Time: 08/12/18 20:47 Interventions: ED Discharge Assessment Last Done: 08/12/18 20:46 Instructions: DI for Abdominal Pain-Adult, DI for Hives, DI for Chest Pain Activity Restrictions/Additional Instructions: I gave you medication for an allergic reaction given her hives. I have given you a prescription for steroids for the next few days. You did not want any further workup of her abdominal cramping or chest pain. Please follow-up with her primary care provider soon as possible. Please monitor for recurrence of hives. You could always take oral Benadryl every 6 hr if needed. Please follow-up with primary care provider in a few days. Come back to the emergency department for any acute concerns including shortness of breath or difficulty breathing or oral swelling. Please come back to emergency department for any concern of heart attack or stroke. Prescriptions: New prednisone 20 mg tablet 40 mg PO DAILY 4 Days Qty: 8 RF: 0 No Action aspirin 81 MG tablet,delayed release (DR/EC) 81 mg PO QPM Qty: 0 RF: 0 valsartan [Diovan] 40 MG tablet 40 mg PO QDAY Qty: 90 RF: 3 fluconazole [Diflucan] 150 mg tablet 150 mg PO ONCE Qty: 2 RF: 0 lisinopril 20 mg tablet 20 mg PO DAILY Qty: 90 RF: 3 multivitamin Tablet 1 tab PO DAILY RF: 0 latanoprost 0.005 % Drops 1 drp ophthalmic (eye) BEDTIME RF: 0 Vitamin C 1 tab PO DAILY RF: 0 Vitamin D3 1 cap PO DAILY RF: 0 ibuprofen 600 MG tablet 600 mg PO Q6HP PRN (Reason: Pain, Mild) RF: 0 Referrals: Crispin Garcia MD [Primary Care Provider] - <Marylin Garcia DO - Last Filed: 08/12/18 23:07> Cosign ED Attending Cosignature Attestation: I was immediately available in the department for consultation. Documentation has been reviewed. I agree with assessment and plan.
[2018-08-12] MEDS: methylPREDNISolone 125 MG/2 ML VIAL IV (18:16)
[2018-08-12] MEDS: diphenhydrAMINE 50 MG/ML VIAL 25 MG IV (18:16)
[2018-08-12] MEDS: FAMOTIDINE 20 MG/50 ML PIGGYBACK 200 MG IV (18:16)
[2018-08-12 18:17] LABS: Add Manual Diff / Slide Review NO; Basophils Absolute Auto 0 /uL (0-100); Basophils Percent Auto 0.3 % (0-2); Eosinophils Absolute Auto 100 /uL (0-450); Eosinophils Percent Auto 0.6 % (2-4); Hematocrit 39.8 % (36-46); Hemoglobin 13.3 g/dL (12.0-16.0); Lymphocytes Absolute Auto 1300 /uL (1100-4500); Lymphocytes Percent Auto 13.7 % (25-40); Mean Corpuscular HGB Conc 33.5 % (30-36); Mean Corpuscular Hemoglobin 30.6 PG (26-34); Mean Corpuscular Volume 91.5 fL (80-100); Monocytes Absolute Auto 700 /uL (0-900); Monocytes Percent Auto 7.2 % (3-14); Neutrophils Absolute Auto 7600 /uL (1500-7000); Neutrophils Percent Auto 78.2 % (50-75); Platelet Count 177 X10^3/uL (150-400); Red Blood Cell Count 4.35 X10^6/uL (4.0-5.2); Red Cell Distribution Width 14.1 % (11.6-14.8); White Blood Cell Count 9.7 X10^3/uL (4.5-11.0)
[2018-08-12 18:23] VITALS: BP 117/70; PULSE 81; RESP 18; O2SAT 97
[2018-08-12 18:23] LABS: INR 1.2 (0.9-1.3); Prothrombin Time 13.9 SECONDS (10.1-12.7)
[2018-08-12 18:26] LABS: Creatine Kinase 63 U/L (30-135)
[2018-08-12 18:28] LABS: Alanine Aminotransferase 17 IU/L (9-52); Albumin 3.9 g/dL (3.5-5.0); Albumin Globulin Ratio 1.4 (1.0-2.8); Alkaline Phosphatase 41 U/L (38-126); Amylase 69 U/L (30-110); Aspartate Aminotransferase 21 IU/L (14-36); BUN Creatinine Ratio 28.8 (6-22); Bilirubin Total 0.9 mg/dL (0.2-1.3); Blood Urea Nitrogen 23 mg/dL (7-17); Carbon Dioxide 25 mmol/L (22-32); Chloride 103 mmol/L (98-107); Estimated Glomerular Filt Rate > 60.0 mL/min (>60); Globulin 2.8 g/dL (1.7-4.1); Glucose 196 mg/dL (80-110); HEMOLYSIS 21 (0-50); Lipase 54 U/L (23-300); Sodium 138 mmol/L (137-145); Total Protein 6.7 g/dL (6.3-8.2)
[2018-08-12 18:50] LABS: Troponin I < 0.012 ng/mL (0.01-0.034)
[2018-08-12 19:29] LABS: WBC Urine None Seen (0-5/HPF)
[2018-08-12 19:42] VITALS: BP 117/63; PULSE 79; RESP 16; TEMP 37.1; O2SAT 97
[2018-08-12 19:47] LABS: RBC Urine 0-1/HPF (0-5/HPF); Squamous Epithelial Cell Urine 1-5 /HPF
[2018-08-12 19:48] LABS: Bacteria Urine Few (2-10); Culture Indicated Urine Cult Not Indicated
[2018-08-12 20:46] VITALS: BP 118/77; PULSE 86; RESP 16; TEMP 36.9; O2SAT 97
== END 2018-08-12 20:47 | disposition home or self-care (01) ==
PROVIDERS: Emergency Provider Nurse Practitioner Family; Family Provider Family Medicine; PCP Family Medicine
DX: L50.9 Urticaria, unspecified (principal); R10.9 Unspecified abdominal pain; R07.9 Chest pain, unspecified
CPT/HCPCS: 36591; 80053; 81003; 81015; 82150; 82550; 83690; 84484; 85025; 85610; 93005; 93010; 96374; 96375; 99283; 99284; J1200; J2930

== ENCOUNTER → 2018-09-24 08:06 | Outpatient (CLI) | payer OTHER, MEDICARE, SELFPAY ==
[2018-09-24 09:23] LABS: Add Manual Diff / Slide Review NO; Basophils Absolute Auto 0 /uL (0-100); Basophils Percent Auto 0.6 % (0-2); Eosinophils Absolute Auto 100 /uL (0-450); Eosinophils Percent Auto 2.9 % (2-4); Hematocrit 39.8 % (36-46); Hemoglobin 13.1 g/dL (12.0-16.0); Lymphocytes Absolute Auto 1900 /uL (1100-4500); Lymphocytes Percent Auto 37.4 % (25-40); Mean Corpuscular Hemoglobin 30.4 PG (26-34); Mean Corpuscular Volume 92.1 fL (80-100); Monocytes Absolute Auto 500 /uL (0-900); Neutrophils Absolute Auto 2400 /uL (1500-7000); Neutrophils Percent Auto 49.1 % (50-75); Platelet Count 185 X10^3/uL (150-400); Red Blood Cell Count 4.32 X10^6/uL (4.0-5.2); Red Cell Distribution Width 14.4 % (11.6-14.8)
[2018-09-24 09:50] LABS: Alanine Aminotransferase 29 IU/L (9-52); Albumin 4.3 g/dL (3.5-5.0); Albumin Globulin Ratio 1.5 (1.0-2.8); Alkaline Phosphatase 52 U/L (38-126); Aspartate Aminotransferase 26 IU/L (14-36); BUN Creatinine Ratio 25.6 (6-22); Bilirubin Total 0.5 mg/dL (0.2-1.3); Blood Urea Nitrogen 23 mg/dL (7-17); Calcium 9.5 mg/dL (8.4-10.2); Carbon Dioxide 30 mmol/L (22-32); Chloride 102 mmol/L (98-107); Cholesterol 228 mg/dL (140-199); Estimated Glomerular Filt Rate 59.8 mL/min (>60); Globulin 2.9 g/dL (1.7-4.1); Glucose 94 mg/dL (80-110); HDL Cholesterol 81 mg/dL (40-60); HEMOLYSIS < 15 (0-50); LDL Cholesterol Calculated 122 mg/dL (<100); Potassium 4.3 mmol/L (3.4-5.1); Sodium 139 mmol/L (137-145); Total Protein 7.2 g/dL (6.3-8.2); Triglycerides 123 mg/dL (35-150)
[2018-09-24 10:10] LABS: TSH w/ Reflex to FT4 1.83 uIU/mL (0.47-4.68)
== END ==
PROVIDERS: PCP Family Medicine; Visit Provider Family Medicine
DX: I10 Essential (primary) hypertension (principal); Z00.00 Encounter for general adult medical examination without abnormal findings; Z13.6 Encounter for screening for cardiovascular disorders
CPT/HCPCS: 36415; 80053; 80061; 84443; 85025

== ENCOUNTER 2019-01-17 11:15 | Outpatient (RCR) | payer OTHER, MEDICARE, SELFPAY ==
--- NOTE | 2018-11-25 13:04 | PT.OIE ---
Current Diagnoses Unspecified urinary incontinence (11/22/18) Past Medical History (Last Reviewed 08/12/18 @ 18:47 by AKASH Park) Fibroids (Chronic) Hayfever (Chronic 1969) Hypertension (Chronic 1997) Osteopenia (Chronic 1989) RLS (restless legs syndrome) (Chronic 2009) Rosacea (Chronic 1994) Chicken pox (Resolved) Colon polyps (Resolved 1999) Cystic thyroid nodule (Resolved 2011) Fractures (Resolved 1994) Measles (Resolved) Melanoma in situ of lower extremity (Resolved 2007) Mumps (Resolved) Past Surgical History (Last Reviewed 08/12/18 @ 18:47 by AKASH Park) Anesthesia (Resolved) Cataract extraction status, left eye (Resolved 11/08/17) Cataract extraction status, right eye (Resolved 11/22/17) History of melanoma excision (Resolved 2007) History of orthopedic surgery (Resolved) Provider Visit Care Team Role Provider Type Crispin Garcia MD Attending Provider Physician Primary Care Provider Specialty: [facility] Address: [address] [address] Email: [email or web address] Physical Therapy Initial Evaluation PT-OP-A Visit Information Start: 11/25/18 12:24 Freq: Status: Active Protocol: Document 11/22/18 13:45 [facility] (Rec: 11/25/18 13:04 AM[facility] [email or web address]) Out-Patient Physical Therapy Visit Information Visit Information Visit Type Initial Evaluation Visit Note 82 year old female with urinary stress incontinence referred to PT for pelvic floor strengthening. Mica reports her leakage has been going on for over a year now. She reports leakage with coughing and sneezing and is changing her pad 3 times per day. 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 She reports during this time she was unable to control any leaking at all. Visit Start Time 13:45 Visit Stop Time 14:30 Total Visit Minutes 45 Visit Number 1 Evaluation Information Evaluation Date 11/22/18 PT-OP-B Current Condition Start: 11/25/18 12:24 Freq: Status: Active Protocol: Document 11/22/18 13:45 AM[facility] (Rec: 11/25/18 13:04 AMH [email or web address]) Current Condition History of Current Condition Onset Date 1 year Current Complaints urinary stress incontinence History of Current Condition 82 year old female with urinary stress incontinence referred to PT for pelvic floor strengthening. Mica reports her leakage has been going on for over a year now. She reports leakage with coughing and sneezing and is changing her pad 3 times per day. 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 She reports during this time she was unable to control any leaking at all. Other past medical hx incudes 2 vaginal deliveries, hx of broken tailbone at age 15. Treatment Goals Patient/Caregiver Goals To reduce urinary stress incontinence Prior Functional Status Baseline Function- ADL's Independent Baseline Function- Mobility Independent Baseline Function- Other pt reports some loss of balance with squats and lunges since her brain tumor and surgery Current Functional Impairments (Reported) Functional Limitations- Recreation/ leakage during the day is Hobbies limiting recreational activies PT-OP-I Pelvic Floor Start: 11/25/18 12:24 Freq: Status: Active Protocol: Document 11/22/18 13:45 [facility] (Rec: 11/25/18 13:04 [facility] [id number]) Pelvic Floor Assessment Urine Pelvic Floor Surgery No Urinary Symptoms Urge Sensation Incomplete Emptying Other Urinary Symptoms at times Mica feels as if she can't fully empty her bladder or that she has to strain to fully empty her bladder. Leakage Size Medium Leakage Cause Cough Exercise Leaks Per Day she reports changing her pain three times per day Voiding Frequency every 3-4 hours Nocturia 1-2 times per night Pads Used In 24 Hours 3 Urine Pad Type Maxi Pad Pelvic Clock Pelvic Clock 12-3 Atrophy Pelvic Clock 3-6 Atrophy Pelvic Clock 6-9 Atrophy Pelvic Clock 9-12 Atrophy SEMG (uV) Baseline 0 10 Second Contraction 5.3 Recruitment Pattern Fair Relaxation Good Holding Fair Stability of Hold Fair SEMG Stability of Rest Good Contraction Ability Voluntary Contraction Weak Voluntary Relaxation Weak Manual Muscle Testing Left 3 Manual Muscle Testing Right 3 Manual Muscle Testing Anterior 3 Manual Muscle Testing Posterior 3 Muscle Endurance (Seconds) 4 Comments Pelvic Floor Comments average on EMG biofeedback is 5.3 and max of 10.7 for long holds PT-OP-Q Treatments Start: 11/25/18 12:24 Freq: Status: Active Protocol: Document 11/22/18 13:45 [facility] (Rec: 11/25/18 13:04 [facility] [email or web address]) Therapeutic Exercises Supine Exercises 1 Supine Exercise Name Pelvic floor long holds with EMG biofeedback Side bilateral Reps/Minutes work up to 10 second hold in supine with 10 second release PT-OP-T Assessment and Plan Start: 11/25/18 12:24 Freq: Status: Active Protocol: Document 11/22/18 13:45 [facility] (Rec: 11/25/18 13:04 [facility] [email or web address]) Physical Therapy Assessment Rehab Potential Rehabilitation Potential Excellent Evaluation Complexity Number of Personal Factors/Comorbidities 0 Number of Body Systems Impaired 1-2 Clinical Presentation at Evaluation Stable Impairments Impairments Activity Tolerance Strength Tone Other Impairments urinary stress incontinence Goals Four Impairment leakage and decreased balance with sit-stand transfer Shelter Goal (LTG) Mica is able to perform a standing squat with good balance and no leakage LTG Duration 8 weeks Three Impairment Urinary stress incontinence made worse with coughing and sneezing Obiee Report Developer Goal (LTG) Mica is able to go from using three pads per day to 0- 1 pad per day LTG Duration 8 weeks Two Impairment Decreased endurance of the pelvic floor at 4 sec Short Term Goal (STG) Improve endurance of the pelvic floor to 10 second hold time in supine STG Duration 4 weeks Obiee Report Developer Goal (LTG) Mica is able to perform standing pelvic floor contractions with 10 second hold time LTG Duration 8 weeks One Impairment pelvic floor weakness contributing to urinary stress incontinence MMT 3/5 Shelter Goal (LTG) Improve pelvic floor strength by one muscle grade to 4/5 for improved support of the bladder to reduce urinary incontinence LTG Duration 8 weeks Assessment Summary Assessment Mica presents to physical therapy today with signs and symptoms consistent with urinary stress incontinence. She is weak throughout her levator ani musculature at 3/5 MMT and lacks good endurance of the pelvic floor. She is also weak with functional movements such as sit-stand and at times can leak with these activities. She also tends to have to strain with voiding and feels as if her bladder is often still full following voiding. She emptys her bladder every 3-4 hours during the day. Treatment will include pelvic floor strengthening, functional strengthening, bladder retraining, and toileting stratagies to improve voiding. She is a good candidate for PT Physical Therapy Plan Frequency and Duration Frequency of Treatment 1x/Week Duration of Treatment 8 weeks Plan of Care Start Date 11/22/18 Plan of Care End Date 01/31/19 Therapeutic Interventions Therapeutic Interventions Home Exercise Program Neuromuscular Re-education Patient/Caregiver Education Self-Care/Home Management Therapeutic Exercises Modalities Biofeedback Next Visit Focus/Plan Next Note Type Treatment Note Next Visit Plan begin to add in hip stabilization exercises and recheck endurance on EMG biofeedback
--- NOTE | 2018-11-25 13:04 | PT.OPPOC ---
Current Diagnoses Unspecified urinary incontinence (11/22/18) Provider Visit Care Team Role Provider Type Crispin Garcia MD Attending Provider Physician Primary Care Provider Specialty: Family Practice Address: [address] [place] [address], [id number] Email: [email or web address] Plan Of Care PT-OP-T Assessment and Plan Start: 11/25/18 12:24 Freq: Status: Active Protocol: Document 11/22/18 13:45 [facility] (Rec: 11/25/18 13:04 [facility] [email or web address]) Physical Therapy Assessment Rehab Potential Rehabilitation Potential Excellent Evaluation Complexity Number of Personal Factors/Comorbidities 0 Number of Body Systems Impaired 1-2 Clinical Presentation at Evaluation Stable Impairments Impairments Activity Tolerance Strength Tone Other Impairments urinary stress incontinence Goals Four Impairment leakage and decreased balance with sit-stand transfer Consumer Experience Consultant Goal (LTG) Mica is able to perform a standing squat with good balance and no leakage LTG Duration 8 weeks Three Impairment Urinary stress incontinence made worse with coughing and sneezing Consumer Experience Consultant Goal (LTG) Mica is able to go from using three pads per day to 0- 1 pad per day LTG Duration 8 weeks Two Impairment Decreased endurance of the pelvic floor at 4 sec Short Term Goal (STG) Improve endurance of the pelvic floor to 10 second hold time in supine STG Duration 4 weeks Intermediate Goal (LTG) Mica is able to perform standing pelvic floor contractions with 10 second hold time LTG Duration 8 weeks One Impairment pelvic floor weakness contributing to urinary stress incontinence MMT 3/5 Consumer Experience Consultant Goal (LTG) Improve pelvic floor strength by one muscle grade to 4/5 for improved support of the bladder to reduce urinary incontinence LTG Duration 8 weeks Assessment Summary Assessment Mica presents to physical therapy today with signs and symptoms consistent with urinary stress incontinence. She is weak throughout her levator ani musculature at 3/5 MMT and lacks good endurance of the pelvic floor. She is also weak with functional movements such as sit-stand and at times can leak with these activities. She also tends to have to strain with voiding and feels as if her bladder is often still full following voiding. She empties her bladder every 3-4 hours during the day. Treatment will include pelvic floor strengthening, functional strengthening, bladder retraining, and toileting strategies to improve voiding. She is a good candidate for PT Physical Therapy Plan Frequency and Duration Frequency of Treatment 1x/Week Duration of Treatment 8 weeks Plan of Care Start Date 11/22/18 Plan of Care End Date 01/31/19 Therapeutic Interventions Therapeutic Interventions Home Exercise Program Neuromuscular Re-education Patient/Caregiver Education Self-Care/Home Management Therapeutic Exercises Modalities Biofeedback Next Visit Focus/Plan Next Note Type Treatment Note Next Visit Plan begin to add in hip stabilization exercises and recheck endurance on EMG biofeedback Plan of Care Dates Plan of Care Start Date 11/22/18 Plan of Care End Date 01/31/19 Please Sign and Return: I have reviewed this Plan of Care and certify that the skilled therapy services above are required to meet the patient?s needs. Physician Signature Date Printed Name and Credentials Clinical Instructor Signature Printed Name and Credentials
--- NOTE | 2018-12-27 17:23 | PT.OTN ---
Current Diagnoses Unspecified urinary incontinence (12/27/18) Physical Therapy Treatment Note PT-OP-A Visit Information Start: 11/25/18 12:24 Freq: Status: Active Protocol: Document 12/20/18 13:45 [facility] (Rec: 12/27/18 17:23 [facility] [email or web address]) Out-Patient Physical Therapy Visit Information Visit Information Visit Type Treatment Note Visit Note Mica reports she is doing better overall with dereased c /o leakage. She has been doing her exercises Visit Start Time 13:45 Visit Stop Time 14:30 Total Visit Minutes 45 Visit Number 2 Evaluation Information Evaluation Date 11/22/18 PT-OP-B Current Condition Start: 11/25/18 12:24 Freq: Status: Active Protocol: Document 11/22/18 13:45 [facility] (Rec: 11/25/18 13:04 [facility] [email or web address]) Current Condition History of Current Condition Onset Date 1 year Current Complaints urinary stress incontinence History of Current Condition 82 year old female with urinary stress incontinence referred to PT for pelvic floor strengthening. Mica reports her leakage has been going on for over a year now. She reports leakage with coughing and sneezing and is changing her pad 3 times per day. 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 She reports during this time she was unable to control any leaking at all. Other past medical hx incudes 2 vaginal deliveries, hx of broken tailbone at age 15. Treatment Goals Patient/Caregiver Goals To reduce urinary stress incontinence Prior Functional Status Baseline Function- ADL's Independent Baseline Function- Mobility Independent Baseline Function- Other pt reports some loss of balance with squats and lunges since her brain tumor and surgery Current Functional Impairments (Reported) Functional Limitations- Recreation/ leakage during the day is Hobbies limiting recreational activies PT-OP-C Subjective Start: 11/25/18 12:24 Freq: Status: Active Protocol: Document 12/20/18 13:45 [facility] (Rec: 12/27/18 17:23 [facility] [email or web address]) OP-PT Subjective Patient Comments Patient Comments Mica reports she is doing better overall with decrased c /o leakage PT-OP-I Pelvic Floor Start: 11/25/18 12:24 Freq: Status: Active Protocol: Document 11/22/18 13:45 [facility] (Rec: 11/25/18 13:04 [facility] [email or web address]) Pelvic Floor Assessment Urine Pelvic Floor Surgery No Urinary Symptoms Urge Sensation Incomplete Emptying Other Urinary Symptoms at times Mica feels as if she can't fully empty her bladder or that she has to strain to fully empty her bladder. Leakage Size Medium Leakage Cause Cough Exercise Leaks Per Day she reports changing her pain three times per day Voiding Frequency every 3-4 hours Nocturia 1-2 times per night Pads Used In 24 Hours 3 Urine Pad Type Maxi Pad Pelvic Clock Pelvic Clock 12-3 Atrophy Pelvic Clock 3-6 Atrophy Pelvic Clock 6-9 Atrophy Pelvic Clock 9-12 Atrophy SEMG (uV) Baseline 0 10 Second Contraction 5.3 Recruitment Pattern Fair Relaxation Good Holding Fair Stability of Hold Fair SEMG Stability of Rest Good Contraction Ability Voluntary Contraction Weak Voluntary Relaxation Weak Manual Muscle Testing Left 3 Manual Muscle Testing Right 3 Manual Muscle Testing Anterior 3 Manual Muscle Testing Posterior 3 Muscle Endurance (Seconds) 4 Comments Pelvic Floor Comments average on EMG biofeedback is 5.3 and max of 10.7 for long holds PT-OP-Q Treatments Start: 11/25/18 12:24 Freq: Status: Active Protocol: Document 12/20/18 13:45 [facility] (Rec: 12/27/18 17:23 [facility] [email or web address]) Therapeutic Exercises Supine Exercises 5 Supine Exercise Name eccentric control and coordination with templates on EMG biofeedback 4 Supine Exercise Name rollouts with theraband Reps/Minutes 3 x 10 reps 3 Supine Exercise Name roll ins with ball squeeze Reps/Minutes 5 second hold x 10 reps 2 Supine Exercise Name quick flicks Reps/Minutes x 10 reps 1 Supine Exercise Name Pelvic floor long holds with EMG biofeedback Side bilateral Reps/Minutes work up to 10 second hold in supine with 10 second release PT-OP-T Assessment and Plan Start: 11/25/18 12:24 Freq: Status: Active Protocol: Document 12/20/18 13:45 [facility] (Rec: 12/27/18 17:23 [facility] [email or web address]) Physical Therapy Assessment Assessment Summary Assessment Mica is not using a pad now at night, showing improvement with both pelvic floor recruitment and strength. Endurance is still difficult to sustain x 10 second hold time Physical Therapy Plan Frequency and Duration Frequency of Treatment 1x/Week Duration of Treatment 8 weeks Plan of Care Start Date 11/22/18 Plan of Care End Date 01/31/19 Therapeutic Interventions Therapeutic Interventions Home Exercise Program Neuromuscular Re-education Patient/Caregiver Education Self-Care/Home Management Therapeutic Exercises Modalities Biofeedback Next Visit Focus/Plan Next Note Type Treatment Note Next Visit Plan continue to progress endurance training of the pelvic floor
--- NOTE | 2019-01-20 17:55 | PT.OTN ---
Current Diagnoses Unspecified urinary incontinence (01/17/19) Physical Therapy Treatment Note PT-OP-A Visit Information Start: 11/25/18 12:24 Freq: Status: Active Protocol: Document 12/27/18 13:45 [facility] (Rec: 12/27/18 17:26 [email or web address] Out-Patient Physical Therapy Visit Information Visit Information Visit Type Treatment Note Visit Start Time 13:45 Visit Stop Time 14:30 Total Visit Minutes 45 Visit Number 3 PT-OP-B Current Condition Start: 11/25/18 12:24 Freq: Status: Active Protocol: Document 11/22/18 13:45 [facility] (Rec: 11/25/18 13:04 [facility] [email or web address]) Current Condition History of Current Condition Onset Date 1 year Current Complaints urinary stress incontinence History of Current Condition 82 year old female with urinary stress incontinence referred to PT for pelvic floor strengthening. Mica reports her leakage has been going on for over a year now. She reports leakage with coughing and sneezing and is changing her pad 3 times per day. 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 She reports during this time she was unable to control any leaking at all. Other past medical hx incudes 2 vaginal deliveries, hx of broken tailbone at age 15. Treatment Goals Patient/Caregiver Goals To reduce urinary stress incontinence Prior Functional Status Baseline Function- ADL's Independent Baseline Function- Mobility Independent Baseline Function- Other pt reports some loss of balance with squats and lunges since her brain tumor and surgery Current Functional Impairments (Reported) Functional Limitations- Recreation/ leakage during the day is Hobbies limiting recreational activies PT-OP-C Subjective Start: 11/25/18 12:24 Freq: Status: Active Protocol: Document 12/27/18 13:45 [facility] (Rec: 12/27/18 17:26 [facility] [email or web address]) OP-PT Subjective Patient Comments Patient Comments Able to walk around [facility] without leakage. Not using a pad at nighttime now PT-OP-I Pelvic Floor Start: 11/25/18 12:24 Freq: Status: Active Protocol: Document 11/22/18 13:45 [facility] (Rec: 11/25/18 13:04 [facility] [email or web address]) Pelvic Floor Assessment Urine Pelvic Floor Surgery No Urinary Symptoms Urge Sensation Incomplete Emptying Other Urinary Symptoms at times Mica feels as if she can't fully empty her bladder or that she has to strain to fully empty her bladder. Leakage Size Medium Leakage Cause Cough Exercise Leaks Per Day she reports changing her pain three times per day Voiding Frequency every 3-4 hours Nocturia 1-2 times per night Pads Used In 24 Hours 3 Urine Pad Type Maxi Pad Pelvic Clock Pelvic Clock 12-3 Atrophy Pelvic Clock 3-6 Atrophy Pelvic Clock 6-9 Atrophy Pelvic Clock 9-12 Atrophy SEMG (uV) Baseline 0 10 Second Contraction 5.3 Recruitment Pattern Fair Relaxation Good Holding Fair Stability of Hold Fair SEMG Stability of Rest Good Contraction Ability Voluntary Contraction Weak Voluntary Relaxation Weak Manual Muscle Testing Left 3 Manual Muscle Testing Right 3 Manual Muscle Testing Anterior 3 Manual Muscle Testing Posterior 3 Muscle Endurance (Seconds) 4 Comments Pelvic Floor Comments average on EMG biofeedback is 5.3 and max of 10.7 for long holds PT-OP-Q Treatments Start: 11/25/18 12:24 Freq: Status: Active Protocol: Document 12/27/18 13:45 [facility] (Rec: 12/27/18 17:26 [facility] [email or web address]) Therapeutic Exercises Supine Exercises 5 Supine Exercise Name eccentric control and coordination with templates on EMG biofeedback 4 Supine Exercise Name rollouts with theraband Reps/Minutes 3 x 10 reps 3 Supine Exercise Name roll ins with ball squeeze Reps/Minutes 5 second hold x 10 reps 2 Supine Exercise Name quick flicks Reps/Minutes x 10 reps 1 Supine Exercise Name Pelvic floor long holds with EMG biofeedback Side bilateral Reps/Minutes work up to 10 second hold in supine with 10 second release PT-OP-T Assessment and Plan Start: 11/25/18 12:24 Freq: Status: Active Protocol: Document 12/27/18 13:45 [facility] (Rec: 12/27/18 17:26 [facility] [email or web address]) Physical Therapy Assessment Assessment Summary Assessment Resting tone is 0.0 uv today, average 6.1 uv and max of 12.9 uv good increase in strength, still needs endurance Physical Therapy Plan Next Visit Focus/Plan Next Note Type Treatment Note Next Visit Plan Start sit-stand and standing pelvic floor exercises next visit
--- NOTE | 2019-01-20 18:01 | PT.OTN ---
Current Diagnoses Unspecified urinary incontinence (01/17/19) Physical Therapy Treatment Note PT-OP-A Visit Information Start: 11/25/18 12:24 Freq: Status: Active Protocol: Document 01/17/19 11:15 [facility] (Rec: 01/20/19 18:01 [facility] [email or web address]) Out-Patient Physical Therapy Visit Information Visit Information Visit Type Treatment Note Visit Start Time 11:15 Visit Stop Time 12:00 Total Visit Minutes 45 Visit Number 4 Evaluation Information Evaluation Date 11/22/18 PT-OP-B Current Condition Start: 11/25/18 12:24 Freq: Status: Active Protocol: Document 11/22/18 13:45 [facility] (Rec: 11/25/18 13:04 [facility] [email or web address]) Current Condition History of Current Condition Onset Date 1 year Current Complaints urinary stress incontinence History of Current Condition 82 year old female with urinary stress incontinence referred to PT for pelvic floor strengthening. Mica reports her leakage has been going on for over a year now. She reports leakage with coughing and sneezing and is changing her pad 3 times per day. 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 She reports during this time she was unable to control any leaking at all. Other past medical hx incudes 2 vaginal deliveries, hx of broken tailbone at age 15. Treatment Goals Patient/Caregiver Goals To reduce urinary stress incontinence Prior Functional Status Baseline Function- ADL's Independent Baseline Function- Mobility Independent Baseline Function- Other pt reports some loss of balance with squats and lunges since her brain tumor and surgery Current Functional Impairments (Reported) Functional Limitations- Recreation/ leakage during the day is Hobbies limiting recreational activies PT-OP-C Subjective Start: 11/25/18 12:24 Freq: Status: Active Protocol: Document 01/17/19 11:15 [facility] (Rec: 01/20/19 18:01 [facility] [email or web address]) OP-PT Subjective Patient Comments Patient Comments Mica reports she had been doing much better overall but she did come down with a bad cough the last few weeks so it is has been difficult with coughing. She is leaving this next week on a month long vacation. PT-OP-I Pelvic Floor Start: 11/25/18 12:24 Freq: Status: Active Protocol: Document 11/22/18 13:45 [facility] (Rec: 11/25/18 13:04 [facility] [email or web address]) Pelvic Floor Assessment Urine Pelvic Floor Surgery No Urinary Symptoms Urge Sensation Incomplete Emptying Other Urinary Symptoms at times Mica feels as if she can't fully empty her bladder or that she has to strain to fully empty her bladder. Leakage Size Medium Leakage Cause Cough Exercise Leaks Per Day she reports changing her pain three times per day Voiding Frequency every 3-4 hours Nocturia 1-2 times per night Pads Used In 24 Hours 3 Urine Pad Type Maxi Pad Pelvic Clock Pelvic Clock 12-3 Atrophy Pelvic Clock 3-6 Atrophy Pelvic Clock 6-9 Atrophy Pelvic Clock 9-12 Atrophy SEMG (uV) Baseline 0 10 Second Contraction 5.3 Recruitment Pattern Fair Relaxation Good Holding Fair Stability of Hold Fair SEMG Stability of Rest Good Contraction Ability Voluntary Contraction Weak Voluntary Relaxation Weak Manual Muscle Testing Left 3 Manual Muscle Testing Right 3 Manual Muscle Testing Anterior 3 Manual Muscle Testing Posterior 3 Muscle Endurance (Seconds) 4 Comments Pelvic Floor Comments average on EMG biofeedback is 5.3 and max of 10.7 for long holds PT-OP-Q Treatments Start: 11/25/18 12:24 Freq: Status: Active Protocol: Document 01/17/19 11:15 [facility] (Rec: 01/20/19 18:01 [facility] [email or web address]) Therapeutic Exercises Supine Exercises 5 Supine Exercise Name eccentric control and coordination with templates on EMG biofeedback 4 Supine Exercise Name rollouts with theraband Reps/Minutes 3 x 10 reps 3 Supine Exercise Name roll ins with ball squeeze Reps/Minutes 5 second hold x 10 reps 2 Supine Exercise Name quick flicks Reps/Minutes x 10 reps 1 Supine Exercise Name Pelvic floor long holds with EMG biofeedback Side bilateral Reps/Minutes work up to 10 second hold in supine with 10 second release Standing Exercises 1 Standing Exercise Name sit-stand with pelvic floor engagement PT-OP-T Assessment and Plan Start: 11/25/18 12:24 Freq: Status: Active Protocol: Document 01/17/19 11:15 [facility] (Rec: 01/20/19 18:01 [facility] [email or web address]) Physical Therapy Assessment Goals Four Impairment leakage and decreased balance with sit-stand transfer Short Term Goal (STG) 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 Mica has shown good progress with pelvic floor strengthening. She will be discharged at this time to a home program. I would be happy to continue treatment in the future for her should she need further strengthening. Physical Therapy Plan Discharge Physical Therapy Discharge Reasons No Longer Attending PT Discharge Comments Mica is feeling independent with her home exercise program . [place] is heading out of the [place] a month. If she feels she needs further PT after she returns she will see her doctor for a new referral
== END 2019-01-21 09:43 | disposition home or self-care (01) ==
LOC: PHYS 11:15
PROVIDERS: PCP Family Medicine; Visit Provider Family Medicine
DX: R32 Unspecified urinary incontinence (principal)
CPT/HCPCS: 97110; 97161

== ENCOUNTER → 2019-03-15 12:36 | Outpatient (CLI) | payer OTHER, MEDICARE, SELFPAY ==
--- NOTE | 2019-03-15 12:39 | DI.CT.S_ITS ---
PROCEDURE: CT HEAD/BRAIN WO CON INDICATIONS: one year follow up after tumor resection TECHNIQUE: Noncontrast 4.5 mm thick angled axial sections acquired from the foramen magnum to the vertex, with coronal and sagittal reformats. For radiation dose reduction, the following was used: automated exposure control, adjustment of mA and/or kV according to patient size. COMPARISON: [facility], MR, MR HEAD/BRAIN WO/W CON, 01/04/2018, 7:00. [facility], CT, CT HEAD/BRAIN WO CON, 02/13/2018, 17:15. FINDINGS: Image quality: Excellent. CSF spaces: Basal cisterns are patent. No extra-axial fluid collections. The ventricles are symmetric in size and shape. Brain: There is stable encephalomalacia seen involving the right upper lobe anteriorly. No intracranial bleeds or masses. The previously seen extra-axial hemorrhage has resolved. There is cerebral volume loss for age, with resultant ventricular and sulcal prominence. There are periventricular and deep white matter chronic small vessel ischemic changes. There is intracranial internal carotid artery atherosclerosis. Skull and face: Right frontal craniotomy changes are seen. Calvarium and visualized facial bones appear intact, without suspicious lesions. Sinuses: Visualized sinuses and mastoids are clear. IMPRESSION: Resolution of the previously seen postoperative hemorrhage. Stable right frontal lobe encephalomalacia. No recurrent masses are seen. Right frontal craniotomy. Dictated by: Robbie Skinner M.D. on 03/15/2019 at 12:15 Approved by: Robbie Skinner M.D. on 03/15/2019 at 12:17
== END ==
PROVIDERS: PCP Family Medicine; Visit Provider Family Medicine
DX: Z86.018 Personal history of other benign neoplasm (principal); Z98.890 Other specified postprocedural states
CPT/HCPCS: 70450

== ENCOUNTER → 2019-04-19 11:18 | Outpatient (CLI) | payer OTHER, MEDICARE, SELFPAY ==
[2019-04-19 12:52] LABS: Alanine Aminotransferase 23 IU/L (9-52); Albumin 4.3 g/dL (3.5-5.0); Albumin Globulin Ratio 1.6 (1.0-2.8); Alkaline Phosphatase 50 U/L (38-126); Aspartate Aminotransferase 28 IU/L (14-36); Bilirubin Total 0.6 mg/dL (0.2-1.3); Blood Urea Nitrogen 27 mg/dL (7-17); Calcium 9.9 mg/dL (8.4-10.2); Carbon Dioxide 30 mmol/L (22-32); Chloride 103 mmol/L (98-107); Estimated Glomerular Filt Rate 59.7 mL/min (>60); Globulin 2.7 g/dL (1.7-4.1); Glucose 82 mg/dL (80-110); HEMOLYSIS < 15 (0-50); Potassium 4.8 mmol/L (3.4-5.1); Sodium 141 mmol/L (137-145)
== END ==
PROVIDERS: PCP Family Medicine; Visit Provider Hospitalist
DX: R10.9 Unspecified abdominal pain (principal)
CPT/HCPCS: 36415; 80053

== ENCOUNTER → 2019-05-16 14:06 | Outpatient (CLI) | payer OTHER, SELFPAY ==
--- NOTE | 2019-05-16 14:10 | DI.US.S_ITS ---
PROCEDURE: US ABDOMEN COMPLETE INDICATIONS: RUQ PAIN TECHNIQUE: Real-time scanning was performed of the abdominal and retroperitoneal organs, with image documentation. COMPARISON: [facility], US, ABD AORTA ANEURYSM SCREENING, 08/25/2016, 8:38. FINDINGS: Liver: Liver is normal in size and homogeneous in echotexture. Solid, hypoechoic avascular mass seen adjacent to the inferior tip of the left hepatic lobe measuring 2.0 x 1.6 x 1.9 cm. Gallbladder: No gallstones identified. Normal gallbladder wall. No pericholecystic fluid. Negative sonographic Mcdonnell sign. Biliary ducts: Intrahepatic bile ducts are non-dilated. Extrahepatic bile duct caliber measures 9.0 mm. Normal is 6-7 mm or less in diameter, or 10 mm or less post-cholecystectomy. Pancreas: Visualized portions of the pancreas are sonographically normal. Spleen: Spleen is normal in size and homogeneous in echotexture. Kidneys: Right kidney measures 9.3 cm in length and the left kidney is obscured by overlying bowel. The right kidney hydronephrosis, nephrolithiasis or mass. Aorta: Visualized aorta is normal in caliber at less than 3 cm. Iliacs: Proximal common iliac arteries are normal in caliber at less than 2.5 cm. IVC: Intrahepatic inferior vena cava is patent. Miscellaneous: No free abdominal fluid. IMPRESSION: 1. Solid hypoechoic avascular mass adjacent to the inferior tip of the left hepatic lobe. CT with contrast is recommended for further assessment as underlying neoplasm cannot be excluded. 2. Prominence of the extrahepatic bile duct which also can be further assessed by CT at the same time. 3. Left kidney not visualized. Dictated by: Mirza LOPEZ Interpreted: Carole Terrell MD on 05/16/2019 at 16:12 Approved by: Carole Terrell M.D. on 05/16/2019 at 18:47
== END ==
PROVIDERS: PCP Family Medicine; Visit Provider Family Medicine
DX: R10.11 Right upper quadrant pain (principal); R16.0 Hepatomegaly, not elsewhere classified
CPT/HCPCS: 76700

== ENCOUNTER → 2019-05-28 09:31 | Outpatient (CLI) | payer OTHER, SELFPAY ==
[2019-05-28 10:03] LABS: Blood Urea Nitrogen 27 mg/dL (7-17); Estimated Glomerular Filt Rate 59.7 mL/min (>60)
--- NOTE | 2019-05-28 11:11 | DI.CT.S_ITS ---
PROCEDURE: CT ABDOMEN W CON INDICATIONS: abdominal pain/hepatic lesion TECHNIQUE: After the administration of oral and intravenous contrast, 5 mm thick sections acquired from the diaphragms to the iliac crests. 5 mm thick coronal and sagittal reformats were acquired. For radiation dose reduction, the following was used: automated exposure control, adjustment of mA and/or kV according to patient size. COMPARISON: Abdominal ultrasound 05/16/2019. FINDINGS: Image quality: Excellent. Lung bases: Lung bases are clear. Heart size is normal. Solid organs: Liver is normal in size. No focal hepatic lesion identified. Ill-defined enhancement in the anterior right hepatic lobe which has the appearance of a perfusion abnormality. There may be hepatic steatosis. Non-cirrhotic morphology. Gallbladder is unremarkable. Biliary system is non dilated. Pancreas enhances normally. Spleen is normal in size and enhancement. Calcification or hemangioma in the inferior pole. No adrenal nodules. Kidneys are normal in size, without hydronephrosis. Peritoneum and bowel: Soft tissue density mass interposed between the left hepatic lobe and the lesser curvature of the stomach measuring 2.4 x 2 cm, (2/15). This appears to be exophytic from the gastric wall and corresponds to the hypoechoic abnormality seen on ultrasound. No hyperenhancement. Stomach is not distended. No hiatal hernia. Contrast enhanced bowel loops appear normal in caliber. Medication tablet in the transverse colon. No free fluid or air. Nodes and vessels: No retroperitoneal or mesenteric adenopathy by size criteria. Aorta and inferior vena cava are normal in size. Bones: No suspicious bony lesions. Bilateral L5 pars defect. Anterior listhesis of L5 on S1 measuring 1 cm. Minimal height loss at T12. Miscellaneous: No ventral hernias. IMPRESSION: 1. Solid soft tissue mass at the lesser curvature which appears to originate from the stomach. 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 -This may be amenable to transgastric endoscopic biopsy. 2. No other masses are lymph nodes. 3. Incidental bilateral L5 pars defect with moderate anterolisthesis. Dictated by: Aman Zhao M.D. on 05/28/2019 at 12:32 Approved by: Aman Zhao M.D. on 05/28/2019 at 12:46
== END ==
LOC: LAB 10:38 → CT 13:37
PROVIDERS: PCP Family Medicine; Visit Provider Family Medicine
DX: Z01.812 Encounter for preprocedural laboratory examination (principal); K76.9 Liver disease, unspecified; R10.9 Unspecified abdominal pain; R93.5 Abnormal findings on diagnostic imaging of other abdominal regions, including retroperitoneum; M43.16 Spondylolisthesis, lumbar region
CPT/HCPCS: 36415; 74160; 82565; 84520; Q9967

== ENCOUNTER → 2019-10-04 08:08 | Outpatient (CLI) | payer OTHER, SELFPAY ==
[2019-10-04 09:18] LABS: Add Manual Diff / Slide Review NO; Basophils Absolute Auto 0 /uL (0-100); Basophils Percent Auto 0.5 % (0-2); Eosinophils Absolute Auto 100 /uL (0-450); Eosinophils Percent Auto 2.7 % (2-4); Hematocrit 39.3 % (36-46); Hemoglobin 13.4 g/dL (12.0-16.0); Lymphocytes Absolute Auto 1500 /uL (1100-4500); Lymphocytes Percent Auto 33.1 % (25-40); Mean Corpuscular Hemoglobin 30.9 PG (26-34); Mean Corpuscular Volume 90.8 fL (80-100); Monocytes Absolute Auto 400 /uL (0-900); Monocytes Percent Auto 8.9 % (3-14); Neutrophils Absolute Auto 2400 /uL (1500-7000); Neutrophils Percent Auto 54.8 % (50-75); Platelet Count 175 X10^3/uL (150-400); Red Blood Cell Count 4.33 X10^6/uL (4.0-5.2); Red Cell Distribution Width 14.3 % (11.6-14.8); White Blood Cell Count 4.5 X10^3/uL (4.5-11.0)
[2019-10-04 09:38] LABS: Alanine Aminotransferase 18 IU/L (<35); Albumin 4.3 g/dL (3.5-5.0); Albumin Globulin Ratio 1.5 (1.0-2.8); Alkaline Phosphatase 54 U/L (38-126); Aspartate Aminotransferase 30 IU/L (14-36); Bilirubin Total 0.7 mg/dL (0.2-1.3); Blood Urea Nitrogen 25 mg/dL (7-17); Calcium 9.6 mg/dL (8.4-10.2); Carbon Dioxide 29 mmol/L (22-32); Chloride 105 mmol/L (98-107); Cholesterol 202 mg/dL (140-199); Estimated Glomerular Filt Rate 52.8 mL/min (>60); Globulin 2.9 g/dL (1.7-4.1); Glucose 98 mg/dL (80-110); HDL Cholesterol 77 mg/dL (40-60); HEMOLYSIS < 15 (0-50); LDL Cholesterol Calculated 106 mg/dL (<100); Potassium 4.8 mmol/L (3.4-5.1); Sodium 140 mmol/L (137-145); Total Protein 7.2 g/dL (6.3-8.2); Triglycerides 94 mg/dL (35-150)
[2019-10-04 10:01] LABS: TSH w/ Reflex to FT4 1.32 uIU/mL (0.47-4.68)
== END ==
PROVIDERS: PCP Family Medicine; Referring Provider Family Medicine; Visit Provider Family Medicine
DX: D32.9 Benign neoplasm of meninges, unspecified (principal); E04.1 Nontoxic single thyroid nodule; I10 Essential (primary) hypertension; K21.9 Gastro-esophageal reflux disease without esophagitis; K31.89 Other diseases of stomach and duodenum
CPT/HCPCS: 36415; 80053; 80061; 84443; 85025

== ENCOUNTER → 2019-12-18 15:05 | Outpatient (CLI) | payer OTHER, SELFPAY | PROVIDERS: PCP Family Medicine; Referring Provider Family Medicine; Visit Provider Family Medicine | DX: R30.0 Dysuria (principal) | CPT/HCPCS: 87077; 87086; 87186 ==

== ENCOUNTER → 2020-05-04 12:06 | Outpatient (CLI) | payer OTHER, SELFPAY ==
--- NOTE | 2020-05-04 12:07 | DI.CT.S_ITS ---
PROCEDURE: CT HEAD/BRAIN WO CON INDICATIONS: s/p menegoma resections TECHNIQUE: Noncontrast 4.5 mm thick angled axial sections acquired from the foramen magnum to the vertex, with coronal and sagittal reformats. For radiation dose reduction, the following was used: automated exposure control, adjustment of mA and/or kV according to patient size. COMPARISON: [facility], MR, MR HEAD/BRAIN WO/W CON, 01/04/2018, 7:00. [facility], CT, CT HEAD/BRAIN WO CON, 02/13/2018, 17:15. [facility], CT, CT HEAD/BRAIN WO CON, 03/15/2019, 12:39. FINDINGS: Image quality: Excellent. CSF spaces: Basal cisterns are patent. No extra-axial fluid collections. The ventricles are symmetric in size and shape. Brain: Stable right frontal encephalomalacia. No intracranial bleeds or masses. There is moderate cerebral volume loss for age, with resultant ventricular and sulcal prominence. There are moderate periventricular and deep white matter chronic small vessel ischemic changes. There is intracranial internal carotid artery atherosclerosis. Skull and face: Right frontal craniotomy. Calvarium and visualized facial bones appear intact, without suspicious lesions. Sinuses: Visualized sinuses and mastoids are clear. IMPRESSION: 1. No acute intracranial abnormalities. 2. Cerebral volume loss and chronic microvascular ischemic changes. 3. Stable right frontal encephalomalacia. No recurrent mass. Dictated by: Carole Terrell M.D. on 05/04/2020 at 12:56 Approved by: Carole Terrell M.D. on 05/04/2020 at 13:00
== END ==
PROVIDERS: PCP Family Medicine; Referring Provider Family Medicine; Visit Provider Family Medicine
DX: D32.9 Benign neoplasm of meninges, unspecified (principal); G93.89 Other specified disorders of brain; I65.29 Occlusion and stenosis of unspecified carotid artery
CPT/HCPCS: 70450

== ENCOUNTER → 2020-11-27 14:37 | Outpatient (CLI) | payer OTHER, SELFPAY ==
[2020-11-27 15:43] LABS: BUN Creatinine Ratio 29.1 (6-22); Blood Urea Nitrogen 25 mg/dL (7-17); Estimated Glomerular Filt Rate > 60.0 mL/min (>60)
== END ==
PROVIDERS: PCP Family Medicine; Referring Provider Family Medicine; Visit Provider Family Medicine
DX: Z01.812 Encounter for preprocedural laboratory examination (principal)
CPT/HCPCS: 36415; 82565; 84520

== ENCOUNTER → 2020-11-30 10:28 | Outpatient (CLI) | payer OTHER, SELFPAY ==
--- NOTE | 2020-11-30 11:10 | DI.CT.S_ITS ---
PROCEDURE: CT ABDOMEN W CON INDICATIONS: FU Perigastric lesion TECHNIQUE: After the administration of oral and intravenous contrast, 5 mm thick sections acquired from the diaphragms to the iliac crests. 5 mm thick coronal and sagittal reformats were acquired. For radiation dose reduction, the following was used: automated exposure control, adjustment of mA and/or kV according to patient size. COMPARISON: [facility], CT, CT ABDOMEN W CON, 05/28/2019, 10:58. FINDINGS: Image quality: Excellent. Lung bases: Lung bases are clear. Heart size is normal. Solid organs: Liver is normal in size and enhancement. Gallbladder appears normal. Biliary system is non dilated. Pancreas enhances normally. Spleen is normal in size and enhancement. No adrenal nodules. Kidneys are normal in size, without hydronephrosis. Peritoneum and bowel: Contrast enhanced bowel loops appear normal in caliber. No free fluid or air. At the gastrohepatic ligament area, seen on axial series 3, image 17 there is a ovoid hypoenhancing mass lesion that is worrisome for representing a pathologically enlarged lymph node. This structure was previously measured at 2.4 cm AP and 2.0 cm transverse. It now measures in significantly different at 2.5 cm AP and 1.8 cm transverse. There is a possible association by presence of a mild degree of concentric mural thickening at the esophagogastric junction. This, however, is an area that is difficult to accurately assessed by CT scanning. Nodes and vessels: No new retroperitoneal or mesenteric adenopathy by size criteria. Aorta and inferior vena cava are normal in size. Bones: No suspicious bony lesions. No vertebral body compression fractures. Miscellaneous: No ventral hernias. IMPRESSION: The abnormal enlarged presumed lymph node at the gastrohepatic ligament has not diminished in size and has not definitely enlarged from the comparison study in May of 2019. The likelihood of malignancy persisting without change in size over time as cause of this appearance is considered very low. Note is made of a mild prominence of the esophagogastric junction area of the distal esophagus but this is in an area of frequent false-positive concern for esophageal thickening due to the normal esophagogastric junction structures. Esophagram may be warranted for more accurate assessment of this area. Dictated by: Joseph Pérez M.D. on 11/30/2020 at 17:05 Approved by: Joseph Pérez M.D. on 11/30/2020 at 17:20
== END ==
PROVIDERS: PCP Family Medicine; Referring Provider Family Medicine; Visit Provider Family Medicine
DX: C49.A0 Gastrointestinal stromal tumor, unspecified site (principal)
CPT/HCPCS: 74160

== ENCOUNTER → 2021-09-28 08:18 | Outpatient (CLI) | payer OTHER, SELFPAY ==
[2021-09-28 10:43] LABS: Add Manual Diff / Slide Review NO; Basophils Absolute Auto 0 /uL (0-100); Basophils Percent Auto 0.5 % (0-2); Eosinophils Absolute Auto 100 /uL (0-450); Eosinophils Percent Auto 2.6 % (2-4); Hematocrit 38.6 % (36-46); Lymphocytes Absolute Auto 1400 /uL (1100-4500); Lymphocytes Percent Auto 33.9 % (25-40); Mean Corpuscular HGB Conc 33.7 % (30-36); Mean Corpuscular Hemoglobin 30.6 PG (26-34); Mean Corpuscular Volume 90.6 fL (80-100); Monocytes Absolute Auto 400 /uL (0-900); Monocytes Percent Auto 9.3 % (3-14); Neutrophils Absolute Auto 2200 /uL (1500-7000); Neutrophils Percent Auto 53.7 % (50-75); Platelet Count 172 X10^3/uL (150-400); Red Blood Cell Count 4.26 X10^6/uL (4.0-5.2); Red Cell Distribution Width 13.8 % (11.6-14.8); White Blood Cell Count 4.2 X10^3/uL (4.5-11.0)
[2021-09-28 10:59] LABS: Alanine Aminotransferase 16 IU/L (<35); Albumin 4.3 g/dL (3.5-5.0); Albumin Globulin Ratio 1.5 (1.0-2.8); Alkaline Phosphatase 53 U/L (38-126); Aspartate Aminotransferase 26 IU/L (14-36); Bilirubin Total 0.5 mg/dL (0.2-1.3); Blood Urea Nitrogen 20 mg/dL (7-17); Calcium 9.2 mg/dL (8.4-10.2); Carbon Dioxide 31 mmol/L (22-32); Chloride 105 mmol/L (98-107); Estimated Glomerular Filt Rate 58.6 mL/min (>60); Globulin 2.8 g/dL (1.7-4.1); Glucose 92 mg/dL (80-110); HEMOLYSIS < 15 (0-50); Potassium 4.3 mmol/L (3.4-5.1); Sodium 140 mmol/L (137-145); Total Protein 7.1 g/dL (6.3-8.2)
[2021-09-28 11:04] LABS: High Sensitivity CRP - Cardiac 3.4 mg/L (1.0-3.0)
[2021-09-28 11:13] LABS: Erythrocyte Sedimentation Rate 15 MM/HR (0-20)
[2021-09-28 11:57] LABS: Thyroid Stimulating Hormone 1.19 uIU/mL (0.47-4.68)
== END ==
PROVIDERS: PCP Family Medicine; Referring Provider Ophthalmology; Visit Provider Ophthalmology
DX: H53.121 Transient visual loss, right eye (principal); D34 Benign neoplasm of thyroid gland; H53.40 Unspecified visual field defects; D32.0 Benign neoplasm of cerebral meninges
CPT/HCPCS: 36415; 80053; 84443; 85025; 85651; 86140; 87252

== ENCOUNTER → 2021-10-04 12:40 | Outpatient (CLI) | payer OTHER, SELFPAY | PROVIDERS: PCP Family Medicine; Referring Provider Ophthalmology; Visit Provider Ophthalmology | DX: D32.0 Benign neoplasm of cerebral meninges (principal) ==

== ENCOUNTER → 2021-10-21 17:36 | Outpatient (CLI) | payer OTHER, MEDICARE, SELFPAY ==
--- NOTE | 2021-10-21 | DI.MRI.S_ITS ---
PROCEDURE: MR HEAD/BRAIN WO CON INDICATIONS: Benign neoplasm of cerebral meninges TECHNIQUE: Non-contrast axial T1 spin echo, axial T2 fast spin echo, sagittal and axial FLAIR, coronal T2 fast spin echo, axial gradient echo, axial diffusion and ADC through the brain. COMPARISON: [facility], CT, CT HEAD/BRAIN WO CON, 05/04/2020, 12:27. [facility], CT, CT HEAD/BRAIN WO CON, 03/15/2019, 12:39. Outside Facility, RG, MRI BRAIN W/WO CONTRAST, 02/08/2018, 21:49. FINDINGS: Image quality: Excellent. CSF spaces: Ventricles appear symmetric in size and shape. Basal cisterns are patent. No extra-axial fluid collections. Brain: No intracranial bleeds or mass effects. Right frontal surgical resection cavity is stable. There is mild cerebral volume loss for age. There are [id number] periventricular and deep white matter chronic small vessel ischemic changes. Brainstem appears normal. Diffusion-weighted images show no acute ischemic insults. No chronic ischemic insults. Normal intravascular flow voids are present. Skull and face: Postsurgical changes compatible with prior right frontal craniotomy stable compared to prior exams. Calvarial bone marrow is normal in signal. Orbits are normal. Sinuses: Sinuses and mastoids are clear. IMPRESSION: 1. Stable postsurgical changes. 2. No definite evidence of recurrent or residual extra-axial mass, however residual mass cannot be completely excluded without benefit of postcontrast imaging. 3. Mild, diffuse cerebral volume loss. 4. [id number] periventricular and subcortical white matter chronic microvascular ischemic change. Dictated by: Nelly James MD, PhD on 10/22/2021 at 8:40 Approved by: Nelly James MD, PhD on 10/22/2021 at 8:46
== END ==
PROVIDERS: PCP Family Medicine; Referring Provider Ophthalmology; Visit Provider Ophthalmology
DX: D34 Benign neoplasm of thyroid gland (principal); H53.121 Transient visual loss, right eye; H53.40 Unspecified visual field defects; D32.0 Benign neoplasm of cerebral meninges
CPT/HCPCS: 70551

== ENCOUNTER → 2022-01-27 10:30 | Outpatient (CLI) | payer OTHER, MEDICARE, SELFPAY ==
[2022-01-27 11:22] LABS: Appearance Urine UA CLEAR; Bilirubin Urine UA NEGATIVE (NEGATIVE); Color Urine UA YELLOW; Glucose Urine UA NEGATIVE (Negative); Ketones Urine UA NEGATIVE (NEGATIVE); Leukocyte Esterase Urine UA NEGATIVE (NEGATIVE); Nitrite Urine UA NEGATIVE (Negative); Occult Blood Urine UA TRACE-INTACT (Negative); Protein Urine UA NEGATIVE (Negative); Specific Gravity Urine UA <=1.005 (1.000-1.035); Urobilinogen Urine UA 0.2 E.U./dL (0.2)
[2022-01-27 11:29] LABS: pH Urine UA 6.5 (4.5-8.0)
== END ==
PROVIDERS: PCP Family Medicine; Referring Provider Family Medicine; Visit Provider Family Medicine
DX: R30.0 Dysuria (principal)
CPT/HCPCS: 81003

== ENCOUNTER → 2022-07-19 12:21 | Outpatient (CLI) | payer OTHER, MEDICARE, SELFPAY ==
[2022-07-19 12:55] LABS: Estimated Glomerular Filt Rate > 60 mL/min (>60)
--- NOTE | 2022-07-19 13:13 | DI.CT.S_ITS ---
PROCEDURE: CT HEAD/BRAIN WO/W CON INDICATIONS: visual changes post meningioma TECHNIQUE: 4.5 mm thick angled axial sections acquired from the foramen magnum to the vertex before and after the administration of intravenous contrast, with coronal and sagittal reformats. For radiation dose reduction, the following was used: automated exposure control, adjustment of mA and/or kV according to patient size. COMPARISON: [facility], MR, MR HEAD/BRAIN WO CON, 10/21/2021, 17:59. Outside Facility, RG, MRI BRAIN W/WO CONTRAST, 02/08/2018, 21:49. [facility], CT, CT HEAD/BRAIN WO CON, 02/13/2018, 17:15. [facility], CT, CT HEAD/BRAIN WO CON, 05/04/2020, 12:27. FINDINGS: Image quality: Excellent. CSF Spaces: Basal cisterns are patent. No extra-axial fluid collections. Ventricles are normal in size and shape. Brain: No midline shift. No intracranial bleeds or masses. No abnormal intracranial enhancement. Dural sinuses demonstrate normal postcontrast enhancement. There is normal postcontrast enhancement of the major central cerebral arteries. Jean Baptiste-white interface appears normal. There is mild, diffuse cerebral volume loss. There are moderate periventricular and subcortical white matter chronic microvascular ischemic changes. Encephalomalacia noted in the anterior-medial right frontal lobe which is stable compared to the prior CT obtained May 04, 2020. Skull and face: Postsurgical changes compatible with prior right frontal craniotomy. Calvarium and visualized facial bones appear intact, without suspicious lesions. Sinuses: Visualized sinuses and mastoids are clear. IMPRESSION: No acute intracranial disease process. Stable postsurgical changes. No suspicious postcontrast enhancement. Dictated by: Nelly James MD, PhD on 07/19/2022 at 14:21 Approved by: Nelly James MD, PhD on 07/19/2022 at 14:27
== END ==
PROVIDERS: Radiology Vascular & Interventional Radiology; PCP Family Medicine; Referring Provider Family Medicine; Visit Provider Family Medicine
DX: D32.9 Benign neoplasm of meninges, unspecified (principal); H53.9 Unspecified visual disturbance; Z98.890 Other specified postprocedural states; Z86.018 Personal history of other benign neoplasm
CPT/HCPCS: 36415; 70470; 82565; Q9967

== ENCOUNTER → 2023-02-01 08:22 | Outpatient (CLI) | payer OTHER, MEDICARE, SELFPAY ==
[2023-02-01 09:03] LABS: Add Manual Diff / Slide Review NO; Basophils Absolute Auto 0 /uL (0-100); Basophils Percent Auto 0.5 % (0-2); Eosinophils Absolute Auto 100 /uL (0-450); Eosinophils Percent Auto 3.2 % (2-4); Hematocrit 36.8 % (36-46); Hemoglobin 12.5 g/dL (12.0-16.0); Lymphocytes Absolute Auto 1500 /uL (1100-4500); Lymphocytes Percent Auto 37.1 % (25-40); Mean Corpuscular HGB Conc 34.1 % (30-36); Mean Corpuscular Hemoglobin 31.1 PG (26-34); Monocytes Absolute Auto 400 /uL (0-900); Monocytes Percent Auto 9.5 % (3-14); Neutrophils Absolute Auto 2000 /uL (1500-7000); Neutrophils Percent Auto 49.7 % (50-75); Platelet Count 166 X10^3/uL (150-400); Red Blood Cell Count 4.04 X10^6/uL (4.0-5.2); Red Cell Distribution Width 14.2 % (11.6-14.8); White Blood Cell Count 4.1 X10^3/uL (4.5-11.0)
[2023-02-01 09:27] LABS: Alanine Aminotransferase 20 IU/L (<35); Albumin 3.8 g/dL (3.5-5.0); Albumin Globulin Ratio 1.4 (1.0-2.8); Alkaline Phosphatase 48 U/L (38-126); Aspartate Aminotransferase 24 IU/L (14-36); BUN Creatinine Ratio 24.7 (6-22); Bilirubin Total 0.5 mg/dL (0.2-1.3); Blood Urea Nitrogen 23 mg/dL (7-17); Calcium 9.2 mg/dL (8.4-10.2); Carbon Dioxide 31 mmol/L (22-32); Chloride 105 mmol/L (98-107); Estimated Glomerular Filt Rate 59 mL/min (>60); Globulin 2.8 g/dL (1.7-4.1); Glucose 97 mg/dL (80-110); HEMOLYSIS < 15 (0-50); Potassium 4.4 mmol/L (3.4-5.1); Sodium 138 mmol/L (137-145); Total Protein 6.6 g/dL (6.3-8.2)
[2023-02-01 09:56] LABS: TSH w/ Reflex to FT4 2.01 uIU/mL (0.47-4.68)
== END ==
PROVIDERS: PCP Family Medicine; Referring Provider Family Medicine; Visit Provider Family Medicine
DX: I10 Essential (primary) hypertension (principal); E78.2 Mixed hyperlipidemia; G60.9 Hereditary and idiopathic neuropathy, unspecified; E04.1 Nontoxic single thyroid nodule
CPT/HCPCS: 36415; 80053; 84443; 85025

== ENCOUNTER → 2023-03-22 08:43 | Outpatient (CLI) | payer OTHER, SELFPAY ==
--- NOTE | 2023-03-22 09:10 | DI.RAD.S_ITS ---
PROCEDURE: XR ABDOMEN MIN 2V INDICATIONS: Lower abdominal pain TECHNIQUE: 2 views of the abdomen were acquired. COMPARISON: None. FINDINGS: Surgical changes and devices: None. Bowel: No pneumoperitoneum. The bowel gas pattern is nonobstructive. Moderate fecal stasis throughout the colon is seen. Soft tissues: No masses; visualized solid organ contours appear normal in size. No suspicious abdominal calcifications. Likely calcified uterine fibroid is seen in left lower pelvis. Bones: No suspicious bony abnormalities. IMPRESSION: No bowel obstruction or gross free air. Sehi-wm-azizoldq constipation. Likely uterine fibroid as above. Dictated by: Vidal Enriquez M.D. on 03/22/2023 at 10:20 Approved by: Vidal Enriquez M.D. on 03/22/2023 at 10:21
== END ==
PROVIDERS: PCP Family Medicine; Referring Provider Nurse Practitioner Family; Visit Provider Nurse Practitioner Family
DX: R10.30 Lower abdominal pain, unspecified (principal); N39.0 Urinary tract infection, site not specified; K59.00 Constipation, unspecified
CPT/HCPCS: 74019; 87086

== ENCOUNTER 2023-03-22 18:17 | Emergency (ER) | payer OTHER, SELFPAY ==
[2023-03-22] VITALS (7 sets, daily range): BP systolic 156–183; BP diastolic 68–80; PULSE 76–88; RESP 16; TEMP 36.7; O2SAT 94–99; BMI 26.5
--- NOTE | 2023-03-22 18:43 | ED_ITS ---
HPI - Abdominal Pain General Chief Complaint: Abdominal Pain Stated Complaint: BELLY ACHE Time Seen by Provider: 03/22/23 18:35 Source: patient Mode of arrival: Ambulatory History of Present Illness HPI narrative: Patient 87-year-old female with history of hypertension presenting today with 2 days of lower abdominal pain. She thinks that she might be little constipated no nausea or vomiting. She reports that every time she eats or drinks she then hours later has pain. No fever or chills no painful frequent urination. Went to the walk-in clinic today where she would x-ray which showed [id number] stool and no UTI. Related Data Home Medications Medication Instructions Recorded Confirmed Vitamin D3 1 cap PO DAILY 02/13/18 01/30/23 latanoprost 0.005 % eye drops 1 drp ophthalmic (eye) BEDTIME 02/13/18 01/30/23 multivitamin 1 tab PO DAILY 02/13/18 01/30/23 Previous Rx's Medication Instructions Recorded valsartan 40 mg tablet See Rx Instructions .Route 01/30/23 .COMPLEX #90 tabs amoxicillin 875 mg-potassium 1 tab PO BID #20 tabs 03/22/23 clavulanate 125 mg tablet Allergies Allergy/AdvReac Type Severity Reaction Status Date / Time latex [LATEX] Allergy Unknown Verified 01/30/23 09:14 levofloxacin [LEVOFLOXACIN] Allergy Unknown Verified 01/30/23 09:14 gandolium MRI dye Allergy Uncoded 01/30/23 09:14 Review of Systems Review of Systems ROS Unobtainable: All systems reviewed & are unremarkable except as noted in HPI and below Patient History Medical History Abnormal skin growth Chicken pox Colon polyps (1999) Cystic thyroid nodule (2011) Fibroids Fractures (1994) Gastric mass Glaucoma primary, open angle Hayfever (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 Social History marital status: household members: spouse Smoking Status: Former smoker alcohol intake: never substance use type: does not use Smoking Status: Former smoker Substance Use Type: does not use Exam Initial Vital Signs Initial Vital Signs: Vital Signs Temperature 98.1 F 03/22/23 18:22 Pulse Rate 76 03/22/23 18:22 Respiratory Rate 16 03/22/23 18:22 Blood Pressure 178/80 H 03/22/23 18:22 Pulse Oximetry 99 03/22/23 18:22 Oxygen Delivery Method Room Air 03/22/23 18:22 GENERAL: Alert very well-appearing 79-year-old female and in no acute distress. HEENT: Head atraumatic,EOMI, pupils reactive, face symmetric, moist mucous membranes CARDIOVASCULAR: Regular rate and rhythm without murmurs, rubs or gallops. RESPIRATORY: Breath sounds equal bilaterally, no wheezes rales or rhonchi. ABDOMEN: Soft, lower abdominal pain both right and left pain EXTREMITIES: Normal range of motion, no clubbing or edema. Neurovascularly intact NEUROLOGICAL: Alert and oriented x4. SKIN: Warm, dry, no laceration, no petechiae, no rashes or lesions. Course Orders Ordered: ED Orders 03/22/23 18:48 CT abdomen pelvis w con Stat 03/22/23 19:10 CBC Auto Diff [Complete Blood Count AUTO DIFF] Stat CMP [Comprehensive Metabolic Panel] Stat Lipase Stat Discontinued Medications Amoxicillin/Clavulanate Potassium (Amoxicillin/Clav 875/125 Mg) 1 tab PO NOW ONE Stop: 03/22/23 21:03 Last Admin: 03/22/23 21:13 Dose: 1 tab Documented By: JOSELO Vital Signs Vital signs: Vital Signs - 8 hr 03/22/23 18:22 03/22/23 19:26 03/22/23 19:26 Temperature 98.1 F Pulse Rate 76 81 Respiratory Rate 16 Blood Pressure 178/80 H 181/80 H Pulse Oximetry 99 96 Oxygen Delivery Method Room Air Room Air 03/22/23 19:30 03/22/23 19:30 03/22/23 20:00 Temperature Pulse Rate 80 76 Respiratory Rate Blood Pressure 160/68 H Pulse Oximetry 98 98 Oxygen Delivery Method Room Air Room Air 03/22/23 20:35 03/22/23 20:36 03/22/23 20:36 Temperature Pulse Rate 88 85 Respiratory Rate Blood Pressure 183/76 H Pulse Oximetry 94 Oxygen Delivery Method Room Air 03/22/23 21:00 03/22/23 21:00 Temperature Pulse Rate 79 Respiratory Rate Blood Pressure 156/74 H Pulse Oximetry 98 Oxygen Delivery Method Room Air MDM - Abdominal Pain Lab Data 03/22/23 19:10 03/22/23 19:10 Labs: Lab Results 03/22/23 03/22/23 Range/Units 19:10 19:10 WBC 11.3 H (4.5-11.0) X10^3/uL RBC 4.16 (4.0-5.2) X10^6/uL Hgb 12.9 (12.0-16.0) g/dL Hct 37.1 (36-46) % MCV 89.2 (80-100) fL MCH 31.0 (26-34) PG MCHC 34.8 (30-36) % RDW 14.0 (11.6-14.8) % Plt Count 182 (150-400) X10^3/uL Neut % (Auto) 83.7 H (50-75) % Lymph % (Auto) 10.6 L (25-40) % Carlton % (Auto) 5.0 (3-14) % Eos % (Auto) 0.5 L (2-4) % Baso % (Auto) 0.2 (0-2) % Neut # (Auto) 9500 H (3954-4944) /uL Lymph # (Auto) 1200 (8529-3213) /uL Carlton # (Auto) 600 (0-900) /uL Eos # (Auto) 100 (0-450) /uL Baso # (Auto) 0 (0-100) /uL Sodium 136 L (137-145) mmol/L Potassium 4.0 (3.4-5.1) mmol/L Chloride 102 (98-107) mmol/L Carbon Dioxide 28 (22-32) mmol/L BUN 19 H (7-17) mg/dL Creatinine 0.71 (0.52-1.04) mg/dL Estimated GFR > 60 (>60) mL/min BUN/Creatinine Ratio 26.8 H (6-22) Glucose 112 H (80-110) mg/dL Calcium 9.2 (8.4-10.2) mg/dL Total Bilirubin 1.0 (0.2-1.3) mg/dL AST 27 (14-36) IU/L ALT 19 (<35) IU/L Alkaline Phosphatase 54 (38-126) U/L Total Protein 7.6 (6.3-8.2) g/dL Albumin 4.2 (3.5-5.0) g/dL Globulin 3.4 (1.7-4.1) g/dL Albumin/Globulin Ratio 1.2 (1.0-2.8) Lipase 36 (23-300) U/L Imaging Data CT scan - abdomen/pelvis: Radiologist's Impression: PROCEDURE:? CT ABDOMEN PELVIS W CON ? INDICATIONS:? lower abdominal pain ? TECHNIQUE:? After the administration of intravenous contrast, axial sections acquired from the lung bases to the pubic symphysis.? Coronal and sagittal reformats were performed.? For radiation dose reduction, the following was used:? automated exposure control, adjustment of mA and/or kV according to patient size.? ? COMPARISON:? [facility], CT, CT ABDOMEN W [facility], 05/28/2019, 10:58.? [facility], CT, CT ABDOMEN W CON, 11/30/2020, 11:34. ? FINDINGS:? Image quality:? Excellent.? ? Lung bases:? Unremarkable. Heart:? No significant findings. ? ABDOMEN: Liver:? Unremarkable.? ? Gallbladder:? Unremarkable. Biliary ducts:? Unremarkable.? ? Pancreas:? Unremarkable.? ? Spleen:? Unremarkable.? ? Adrenal Glands:? Unremarkable.? ? Kidneys and Ureters:? Unremarkable.? ? ? Stomach and Bowel:? Multiple diverticula are seen in the colon.? There is bowel wall thickening and inflammatory fat stranding surrounding the sigmoid colon, which is suspicious for acute diverticulitis.? No focal fluid collection or pneumoperitoneum is seen.? The fat plane between the colon and uterus is obscured, which is nonsp ecific.? No signs of small bowel obstruction.? Moderate stool in the ascending and transverse colon.? Normal appendix.? Peritoneum:? No abnormal intraperitoneal fluid.? No free air.? ? Ventral Wall: ? No hernias.? Abdominal Nodes:? Soft tissue nodule at the gastrohepatic ligament measures 3.1 x 2.0 cm (14/09), compared to 2.6 x 1[address] from 11/30/2020.? Vessels:? Aorta and inferior vena cava are normal in size.? ? PELVIS: Pelvic Organs:? Large calcified uterine fibroid is seen.? Right ovary is larger than expected for age and measures 4.6 x 3.2 cm.? A mildly prominent adjacent fluid- filled loop of small bowel is also noted, likely reactive.? Left ovary measures 2.9 x 2.3 cm.? There is mildly prominent contrast material within the left greater than right gonadal veins. Bladder:? Unremarkable.? ? Pelvic Nodes: No enlarged lymph nodes.? Miscellaneous: No hernias are seen. ? ? ? Bones:? Generalized osteopenia.? Multilevel degenerative changes are seen in the spine.? There is grade 1-2 anterolisthesis at L4-5.? Unchanged mild chronic compression deformity at T11. ? IMPRESSION:? 1. Acute sigmoid diverticulitis.? No focal fluid collection or pneumoperitoneum. 2. Gastrohepatic ligament soft tissue nodule has mildly increased in size when compared to the prior CT from 11/30/2020. 3. Right ovary is mildly enlarged for age.? Recommend follow-up pelvic ultrasound to exclude underlying cyst or mass once acute symptoms resolve.? Approved by: Robinson Mejia M.D. on 03/22/2023 at 20:3 MDM Narrative Medical decision making narrative: Patient ender 87-year-old female presents today with lower abdominal cramping. Blood work has been reviewed. She overall appears well she is mild leukocytosis 11.3 with a slight shift electrolytes are stable. CT has been reviewed and reveals uncomplicated sigmoid diverticulitis. She is given 1st dose of antibiotics Augmentin she is allergic to Levaquin. Pain is well-controlled not requiring anything for pain. At this time outpatient treatment is appropriate. Discharge Plan Departure Patient Disposition: Home Clinical Impression: Diverticulitis Instructions: DI for Diverticulitis Activity Restrictions/Additional Instructions: *You have been diagnosed with diverticulitis *What to do: You may need a low fiber diet until your pain improves. *Continue to take medications as directed Augmentin 875 mg twice a day for 10 days--> SAFEWAY *Follow up with your primary care provider in 2-3 days or call [phone] *Return to ER if you should have increasing pain fever bloody stools or any new, worsening or concerning symptoms Prescriptions: New amoxicillin-pot clavulanate 875-125 mg tablet 1 tab PO BID Qty: 20 0RF No Action valsartan 40 mg tablet See Rx Instructions .ROUTE .COMPLEX Qty: 90 3RF Dose Instruction: Take 1 tablet by mouth every day Rx Instructions: Take 1 tablet by mouth every day multivitamin Tablet 1 tab PO DAILY latanoprost 0.005 % Drops 1 drp ophthalmic (eye) BEDTIME Vitamin D3 1 cap PO DAILY Referrals: Crispin Garcia MD [Primary Care Provider] - Stand Alone Forms: Patient Portal/API
--- NOTE | 2023-03-22 18:48 | DI.CT.S_ITS ---
PROCEDURE: CT ABDOMEN PELVIS W CON INDICATIONS: lower abdominal pain TECHNIQUE: After the administration of intravenous contrast, axial sections acquired from the lung bases to the pubic symphysis. Coronal and sagittal reformats were performed. For radiation dose reduction, the following was used: automated exposure control, adjustment of mA and/or kV according to patient size. COMPARISON: [facility], CT, CT ABDOMEN W CON, 05/28/2019, 10:58. [facility], CT, CT ABDOMEN W CON, 11/30/2020, 11:34. FINDINGS: Image quality: Excellent. Lung bases: Unremarkable. Heart: No significant findings. ABDOMEN: Liver: Unremarkable. Gallbladder: Unremarkable. Biliary ducts: Unremarkable. Pancreas: Unremarkable. Spleen: Unremarkable. Adrenal Glands: Unremarkable. Kidneys and Ureters: Unremarkable. Stomach and Bowel: Multiple diverticula are seen in the colon. There is bowel wall thickening and inflammatory fat stranding surrounding the sigmoid colon, which is suspicious for acute diverticulitis. No focal fluid collection or pneumoperitoneum is seen. The fat plane between the colon and uterus is obscured, which is nonspecific. No signs of small bowel obstruction. Moderate stool in the ascending and transverse colon. Normal appendix. Peritoneum: No abnormal intraperitoneal fluid. No free air. Ventral Wall: No hernias. Abdominal Nodes: Soft tissue nodule at the gastrohepatic ligament measures 3.1 x 2.0 cm (22/), compared to 2.6 x 1[address] from 11/30/2020. Vessels: Aorta and inferior vena cava are normal in size. PELVIS: Pelvic Organs: Large calcified uterine fibroid is seen. Right ovary is larger than expected for age and measures 4.6 x 3.2 cm. A mildly prominent adjacent fluid-filled loop of small bowel is also noted, likely reactive. Left ovary measures 2.9 x 2.3 cm. There is mildly prominent contrast material within the left greater than right gonadal veins. Bladder: Unremarkable. Pelvic Nodes: No enlarged lymph nodes. Miscellaneous: No hernias are seen. Bones: Generalized osteopenia. Multilevel degenerative changes are seen in the spine. There is grade 1-2 anterolisthesis at L4-5. Unchanged mild chronic compression deformity at T11. IMPRESSION: 1. Acute sigmoid diverticulitis. No focal fluid collection or pneumoperitoneum. 2. Gastrohepatic ligament soft tissue nodule has mildly increased in size when compared to the prior CT from 11/30/2020. 3. Right ovary is mildly enlarged for age. Recommend follow-up pelvic ultrasound to exclude underlying cyst or mass once acute symptoms resolve. Approved by: Robinson Mejia M.D. on 03/22/2023 at 20:33
[2023-03-22 19:23] LABS: Add Manual Diff / Slide Review NO; Basophils Absolute Auto 0 /uL (0-100); Basophils Percent Auto 0.2 % (0-2); Eosinophils Absolute Auto 100 /uL (0-450); Eosinophils Percent Auto 0.5 % (2-4); Hematocrit 37.1 % (36-46); Hemoglobin 12.9 g/dL (12.0-16.0); Lymphocytes Absolute Auto 1200 /uL (1100-4500); Lymphocytes Percent Auto 10.6 % (25-40); Mean Corpuscular HGB Conc 34.8 % (30-36); Mean Corpuscular Volume 89.2 fL (80-100); Monocytes Absolute Auto 600 /uL (0-900); Neutrophils Absolute Auto 9500 /uL (1500-7000); Neutrophils Percent Auto 83.7 % (50-75); Platelet Count 182 X10^3/uL (150-400); Red Blood Cell Count 4.16 X10^6/uL (4.0-5.2); White Blood Cell Count 11.3 X10^3/uL (4.5-11.0)
[2023-03-22 19:32] LABS: Alanine Aminotransferase 19 IU/L (<35); Albumin 4.2 g/dL (3.5-5.0); Albumin Globulin Ratio 1.2 (1.0-2.8); Alkaline Phosphatase 54 U/L (38-126); Aspartate Aminotransferase 27 IU/L (14-36); BUN Creatinine Ratio 26.8 (6-22); Blood Urea Nitrogen 19 mg/dL (7-17); Calcium 9.2 mg/dL (8.4-10.2); Carbon Dioxide 28 mmol/L (22-32); Chloride 102 mmol/L (98-107); Estimated Glomerular Filt Rate > 60 mL/min (>60); Globulin 3.4 g/dL (1.7-4.1); Glucose 112 mg/dL (80-110); HEMOLYSIS < 15 (0-50); Lipase 36 U/L (23-300); Sodium 136 mmol/L (137-145); Total Protein 7.6 g/dL (6.3-8.2)
[2023-03-22] MEDS: AMOXICILLIN/CLAV 875/125 MG 1 TAB PO (21:13)
== END 2023-03-22 21:22 | disposition home or self-care (01) ==
PROVIDERS: Emergency Provider Emergency Medicine; PCP Family Medicine
DX: K57.92 Diverticulitis of intestine, part unspecified, without perforation or abscess without bleeding (principal); K59.00 Constipation, unspecified; N39.0 Urinary tract infection, site not specified; R10.30 Lower abdominal pain, unspecified
CPT/HCPCS: 36415; 74019; 74177; 80053; 83690; 85025; 87086; 99284; Q9967

== ENCOUNTER 2023-04-30 09:21 | Emergency (ER) | payer OTHER, SELFPAY ==
[2023-04-30] VITALS (10 sets, daily range): BP systolic 147–194; BP diastolic 70–88; PULSE 59–71; RESP 18; TEMP 36.6; O2SAT 95–99; BMI 25.8
--- NOTE | 2023-04-30 10:59 | PC.NURSE ---
Patient states she was able to empty her bladder at 0600 this morning, but was feeling bladder fullness and the need to have a BM this morning. She was able to have a BM and pee before arrival to the ER today. Patient C/O burning with urination, lower abdomen discomfort, known vaginal yeast infection, history last week of diverticulitis and abx use. She did not take her BP meds today.
[2023-04-30 11:21] LABS: Bacteria Urine Few (2-10); Culture Indicated Urine Specimen Cultured; RBC Urine 5-10/HPF (0-5/HPF); Squamous Epithelial Cell Urine 0-1 /HPF (0-5/HPF); WBC Urine 30-100/HPF (0-5/HPF)
--- NOTE | 2023-04-30 12:17 | ED.FEMALEGU ---
HPI - Female Genitourinary General Chief complaint: Urogenital-Female Stated complaint: urgent urination feeling/ unable to go Time Seen by Provider: 04/30/23 12:04 Source: patient and family Mode of arrival: Ambulatory Limitations: no limitations History of Present Illness HPI Narrative: Patient presents this morning with dysuria and frequency. She is been through a sequence of events in the past weeks, starting with colitis for which she was on antibiotics. She and her were then on a cruise. She received Macrobid for UTI while on the cruise. Her PCM has recently called in 2 doses of Diflucan for candidiasis. She now presents with urinary urgency and right flank pain. She is no history of pyelonephritis. She is no nausea, vomiting or diarrhea. She is no hematuria. She is no fever or chills. She does not have frequent UTIs. There is no current suggestion of ongoing colitis. She did not take her BP medications this morning, she notes her blood pressure is up a bit. She is no chest pain, headache, visual change or dyspnea. Her blood pressure is normally well controlled at home. Related Data Home Medications Medication Instructions Recorded Confirmed Vitamin D3 1 cap PO DAILY 02/13/18 01/30/23 latanoprost 0.005 % eye drops 1 drp ophthalmic (eye) BEDTIME 02/13/18 01/30/23 multivitamin 1 tab PO DAILY 02/13/18 01/30/23 Previous Rx's Medication Instructions Recorded valsartan 40 mg tablet See Rx Instructions .Route 01/30/23 .COMPLEX #90 tabs amoxicillin 875 mg-potassium 1 tab PO BID #20 tabs 03/22/23 clavulanate 125 mg tablet fluconazole 100 mg tablet 100 mg PO ONCE #2 tabs 04/28/23 fluconazole 150 mg tablet 150 mg PO DAILY 1 dose #1 tab 04/30/23 sulfamethoxazole 800 1 tab PO BID 10 days #20 tabs 04/30/23 mg-trimethoprim 160 mg tablet (Bactrim DS) Allergies Allergy/AdvReac Type Severity Reaction Status Date / Time latex [LATEX] Allergy Unknown Verified 01/30/23 09:14 levofloxacin [LEVOFLOXACIN] Allergy Unknown Verified 01/30/23 09:14 gandolium MRI dye Allergy Uncoded 01/30/23 09:14 Review of Systems Review of Systems ROS Unobtainable: All systems reviewed & are unremarkable except as noted in HPI and below Patient History Medical History Glaucoma primary, open angle Abnormal skin growth Gastric mass Meningioma Osteopenia (1989) Hypertension (1997) Chicken pox Measles Mumps Hayfever (1969) Rosacea (1994) RLS (restless legs syndrome) (2009) Fractures (1994) Fibroids Colon polyps (1999) Cystic thyroid nodule (2011) Melanoma in situ of lower extremity (2007) Polyp of colon (01/29/15) Surgical History Anesthesia History of orthopedic surgery History of melanoma excision (2007) Cataract extraction status, left eye (11/08/17) Cataract extraction status, right eye (11/22/17) Family History Father Heart disease Mother ALS (amyotrophic lateral sclerosis) Sister No problems noted. Last Alcoholic Drink: doesnt drink Substance Use Type: does not use Exam Initial Vital Signs Initial Vital Signs: Vital Signs Temperature 97.8 F 04/30/23 09:50 Pulse Rate 69 04/30/23 09:50 Respiratory Rate 18 04/30/23 09:50 Blood Pressure 194/86 H 04/30/23 09:50 Pulse Oximetry 98 04/30/23 09:50 Oxygen Delivery Method Room Air 04/30/23 09:50 Const General: cooperative, healthy appearing, comfortable, well developed and well groomed HENDE Head: normal to inspection, normocephalic and atraumatic Resp Auscultation: clear to auscultation bilaterally Cardio Rate: regular rate Rhythm: regular rhythm Heart Sounds: S1 normal, S2 normal and no murmurs GI Inspection: normal to inspection and non-distended Palpation: No mass and No tender Percussion: normal to percussion Auscultation: normal bowel sounds Back/Spine/Pelvis Back: other (Mild right flank tenderness with palpation.) Skin General: no rashes or lesions noted Neuro General: patient alert, patient awake, patient oriented x3 and no focal motor deficits Extrem General: normal to inspection Psych Mental Status: mental status grossly normal Course Orders Ordered: ED Orders 04/30/23 11:08 Urine Culture Stat Urine Microscopic Stat Discontinued Medications Trimethoprim/Sulfamethoxazole (Trimeth/Sulfa 160/800 (Ds) Tablet) 1 tab PO NOW ONE Stop: 04/30/23 12:48 Last Admin: 04/30/23 12:55 Dose: 1 tab Documented By: CTS Vital Signs Vital signs: Vital Signs - 8 hr 04/30/23 09:50 04/30/23 09:59 04/30/23 10:00 Temperature 97.8 F Pulse Rate 69 67 68 Respiratory Rate 18 Blood Pressure 194/86 H Pulse Oximetry 98 98 99 Oxygen Delivery Method Room Air Room Air 04/30/23 10:32 04/30/23 10:33 04/30/23 10:33 Temperature Pulse Rate 66 67 Respiratory Rate Blood Pressure 147/70 H Pulse Oximetry 97 97 Oxygen Delivery Method 04/30/23 11:00 04/30/23 11:00 04/30/23 11:30 Temperature Pulse Rate 59 L 65 Respiratory Rate Blood Pressure 164/73 H Pulse Oximetry 99 95 Oxygen Delivery Method Room Air 04/30/23 11:30 04/30/23 12:00 04/30/23 12:00 Temperature Pulse Rate 66 Respiratory Rate Blood Pressure 160/72 H 158/70 H Pulse Oximetry 95 Oxygen Delivery Method 04/30/23 12:09 04/30/23 12:09 04/30/23 12:30 Temperature Pulse Rate 70 Respiratory Rate Blood Pressure 183/88 H 180/81 H Pulse Oximetry 98 Oxygen Delivery Method Room Air 04/30/23 12:30 Temperature Pulse Rate 71 Respiratory Rate Blood Pressure Pulse Oximetry 98 Oxygen Delivery Method Room Air MDM - Female Genitourinary Lab Data Labs: Lab Results 04/30/23 Range/Units 11:08 Urine RBC 5-10/hpf H (0-5/HPF) Urine WBC 30-100/hpf H (0-5/HPF) Ur Squamous Epith Cells 0-1 /hpf (0-5/HPF) Urine Bacteria Few (2-10) H (None) Ur Culture Indicated? Specimen cultured Urine Dip Bedside Urine Glucose Negative Bedside Urine Bilirubin - Negative Bedside Urine Ketone - Negative Urine Specific Carlock 1.015 Bedside Urine Occult Blood +++ Bedside Urine pH 6.0 Bedside Urine Protein - Negative Bedside Urine Urobilinogen - Negative Bedside Urine Nitrite - Negative Bedside Urine Leukocytes ++ 125 Esterase MDM Narrative Medical decision making narrative: History and labs indicate a UTI. Patient has right flank discomfort, raising concern for pyelonephritis. She has no fever. Although I do not think she has pyelonephritis, the flank tenderness raises concern, especially considering she has the prolonged series of events noted in HPI. We discussed her blood pressure management. She should monitor at home and follow up with her PCM forgot her blood pressure. She should also see her physician for a repeat UA in about 2 weeks to assure she is cured. She was given the initial dose of Bactrim DS prior to departure. Discharge Plan Departure Patient Disposition: Home Clinical Impression: Urinary tract infection, Hypertension Instructions: Urinary Tract Infection Activity Restrictions/Additional Instructions: Be sure you are drinking plenty of fluids all times. For your blood pressure, take your medications as prescribed. Check your blood pressure daily. Keep a record of your blood pressure checks. I am diagnosing you as UTI, but with the right flank pain there is a little concerned that you could be developing a kidney infection. Take Bactrim DS 2 times daily for 10 days. Take Diflucan 1 tablet after finishing the antibiotics to avoid vaginitis. If you developed increasing pain, nausea/vomiting or fever, return here Otherwise follow-up with your doctor in about 2 weeks. Keep your record of blood pressure recordings and discuss blood pressure management. You should have a follow-up UA to be sure you cleared the UTI. Prescriptions: New fluconazole 150 mg tablet 150 mg PO DAILY Qty: 1 0RF Rx Instructions: Take the tablet after completing antibiotics sulfamethoxazole-trimethoprim [Bactrim DS] 800-160 mg tablet 1 tab PO BID 10 Days Qty: 20 0RF No Action valsartan 40 mg tablet See Rx Instructions .ROUTE .COMPLEX Qty: 90 3RF Dose Instruction: Take 1 tablet by mouth every day Rx Instructions: Take 1 tablet by mouth every day fluconazole 100 mg tablet 100 mg PO ONCE Qty: 2 0RF Rx Instructions: Take one tablet now for infection. May repeat in 3 days, if needed. multivitamin Tablet 1 tab PO DAILY latanoprost 0.005 % Drops 1 drp ophthalmic (eye) BEDTIME Vitamin D3 1 cap PO DAILY amoxicillin-pot clavulanate 875-125 mg tablet 1 tab PO BID Qty: 20 0RF Referrals: Crispin Garcia MD [Primary Care Provider] - Stand Alone Forms: Patient Portal/API
[2023-04-30] MEDS: TRIMETH/SULFA 160/800 (DS) TABLET 1 TAB PO (12:55)
== END 2023-04-30 13:00 | disposition home or self-care (01) ==
PROVIDERS: Emergency Medicine; Emergency Provider Emergency Medicine; PCP Family Medicine
DX: N39.0 Urinary tract infection, site not specified (principal); I10 Essential (primary) hypertension
CPT/HCPCS: 51798; 81003; 81015; 87077; 87086; 87186; 99283

== ENCOUNTER → 2023-05-11 09:23 | Outpatient (CLI) | payer OTHER, SELFPAY ==
[2023-05-11 13:11] LABS: Appearance Urine UA CLEAR; Bilirubin Urine UA NEGATIVE (NEGATIVE); Color Urine UA YELLOW; Glucose Urine UA NEGATIVE (Negative); Ketones Urine UA NEGATIVE (NEGATIVE); Leukocyte Esterase Urine UA NEGATIVE (NEGATIVE); Nitrite Urine UA NEGATIVE (Negative); Occult Blood Urine UA NEGATIVE (Negative); Protein Urine UA NEGATIVE (Negative); Urobilinogen Urine UA 0.2 E.U./dL (0.2)
[2023-05-11 13:15] LABS: pH Urine UA 6.5 (4.5-8.0)
[2023-05-11 13:30] LABS: Bacteria Urine None Seen; Culture Indicated Urine Cult Not Indicated; RBC Urine None Seen (0-5/HPF); Squamous Epithelial Cell Urine 1-5 /HPF (0-5/HPF); WBC Urine None Seen (0-5/HPF)
== END ==
PROVIDERS: PCP Family Medicine; Visit Provider Physician Assistant
DX: N39.0 Urinary tract infection, site not specified (principal)
CPT/HCPCS: 81001

== ENCOUNTER → 2023-10-17 09:10 | Outpatient (CLI) | payer OTHER, SELFPAY ==
[2023-11-14 21:16] LABS: Bacteria Urine Moderate (10-30); Culture Indicated Urine Specimen Cultured; RBC Urine 0-1/HPF (0-5/HPF); Squamous Epithelial Cell Urine None Seen (0-5/HPF); Urine Volume 10mL (spun); WBC Urine 30-100/HPF (0-5/HPF)
== END ==
PROVIDERS: Physician Assistant; PCP Family Medicine; Visit Provider Student in an Organized Health Care Education/Training Program
DX: R35.0 Frequency of micturition (principal); R30.9 Painful micturition, unspecified
CPT/HCPCS: 81015; 87077; 87086; 87186; 87210

== ENCOUNTER → 2023-11-27 07:42 | Outpatient (CLI) | payer OTHER, SELFPAY ==
--- NOTE | 2023-11-27 07:43 | DI.US.S_ITS ---
PROCEDURE: US PELVIC COMPLETE INDICATIONS: Enlarged R ovary seen on 02/2023 CT - needs f/u TECHNIQUE: Real-time scanning was performed of the pelvic organs, with image documentation. Additional endovaginal scanning was necessary due to incomplete visualization of the adnexal and endometrial structures by transabdominal scanning. COMPARISON: None. FINDINGS: Uterus: Uterus is anteverted and normal in size at 6.2 x 2.1 x 3.7 cm. The myometrium is homogeneous. The endometrium measures 4 mm combined thickness. Ovaries: The right ovary measures 4.6 x 4.0 x 5.7 cm, with a calculated ovarian volume of 55 cc. The left ovary measures 2.7 x 1.6 x 2.1 cm, with a calculated ovarian volume of 4.7 cc. There is a simple appearing left ovarian cystic lesion measuring 3.5 x 3.3 x 4.3 centimeter. Other: No pathologic free abdominal or pelvic fluid. IMPRESSION: Simple appearing left ovarian cystic lesion measuring 3.5 x 3.3 x 4.3 centimeters. However, evaluation is mildly suboptimal due to the transabdominal approach. Suspect O-RADS 2 lesion; consider yearly follow-up with ultrasound. We strive to produce accurate, complete, and clear reports of imaging services. To assist us in improving patient care, this report was composed using standard report templates and voice recognition software. Therefore, it may contain abnormal punctuation, insertions and/or omissions. Occasional wrong-word or sound-alike substitutions may occur. Though we review the report and make efforts to correct it, we do recommend that the report be read carefully in proper context to recognize any text inaccuracies. Dictated by: Lev De Leon M.D. on 11/27/2023 at 11:48 Approved by: Lev De Leon M.D. on 11/27/2023 at 11:50
== END ==
LOC: US 07:42
PROVIDERS: PCP Family Medicine; Referring Provider Physician Assistant; Visit Provider Physician Assistant
DX: N83.8 Other noninflammatory disorders of ovary, fallopian tube and broad ligament (principal)
CPT/HCPCS: 76856

== ENCOUNTER → 2023-12-07 10:11 | Outpatient (CLI) | payer OTHER, SELFPAY ==
[2023-12-08 14:14] LABS: Cancer Antigen 125 7.2 U/mL (0-35)
== END ==
PROVIDERS: PCP Family Medicine; Referring Provider Obstetrics & Gynecology; Visit Provider Obstetrics & Gynecology
DX: N83.209 Unspecified ovarian cyst, unspecified side (principal)
CPT/HCPCS: 36415; 86304

== ENCOUNTER → 2023-12-22 09:46 | Outpatient (CLI) | payer OTHER, SELFPAY ==
[2023-12-22 11:15] LABS: BUN Creatinine Ratio 27.2 (6-22); Blood Urea Nitrogen 25 mg/dL (7-17); Calcium 9.6 mg/dL (8.4-10.2); Carbon Dioxide 32 mmol/L (22-32); Chloride 106 mmol/L (98-107); Estimated Glomerular Filt Rate 60 mL/min (>60); Glucose 85 mg/dL (80-110); HEMOLYSIS < 15 (0-50); Potassium 4.2 mmol/L (3.4-5.1); Sodium 141 mmol/L (137-145)
== END ==
LOC: LAB 09:47
PROVIDERS: PCP Family Medicine; Referring Provider Urology; Visit Provider Urology
DX: N39.0 Urinary tract infection, site not specified (principal)
CPT/HCPCS: 36415; 80048

== ENCOUNTER → 2023-12-26 12:39 | Outpatient (CLI) | payer OTHER, SELFPAY ==
--- NOTE | 2023-12-26 12:40 | DI.CT.S_ITS ---
PROCEDURE: CT IVP A/P W/WO INDICATIONS: Recurrent urinary tract infection TECHNIQUE: Optional 5 mm thick noncontrast images acquired from the diaphragm to the symphysis pubis. After the administration of intravenous contrast, 5 mm thick images acquired from the diaphragm to the symphysis pubis after a 10-minute delay. 2 mm thick coronal and sagittal reformats were then performed of the kidneys and ureters. For radiation dose reduction, the following was used: automated exposure control, adjustment of mA and/or kV according to patient size. COMPARISON: None. FINDINGS: Image quality: Diagnostic. Kidneys and Ureters: Both kidneys are normal in size, without hydronephrosis or nephrolithiasis. No perinephric fat stranding. There is normal bilateral renal enhancement. Renal calyces appear normal in morphology when filled with contrast. Opacified portions of both ureters demonstrate normal caliber Bladder: Bladder wall thickness is normal. No calcified bladder stones. OTHER: Lower chest: Unremarkable. Liver: No solid mass. Gallbladder: No radiopaque gallstones or wall thickening. Biliary ducts: No biliary dilation. Pancreas: No ductal dilation. Spleen: Size is within normal limits. Adrenal Glands: No adrenal nodules. Stomach and Bowel: Normal colonic caliber, without significant wall thickening. Colonic diverticulosis without evidence of diverticulitis. Peritoneum: No abnormal intraperitoneal fluid. No free air. Ventral Wall: No hernia. Abdominal Nodes: No retroperitoneal or mesenteric adenopathy by size criteria. Vessels: Aorta and inferior vena cava are normal in size. PELVIS: Pelvic Organs: Stable bilobed right ovarian cystic lesion, characterized on pelvic ultrasound dated 11/27/2023. Calcified uterine fibroid along the anterior margin measuring 3.7 centimeter. Pelvic Nodes: No enlarged lymph nodes. Miscellaneous: No inguinal hernias are seen. Bones: No aggressive osseous abnormality. Degenerative disc disease of the lumbar spine. Lumbarization of S1. 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 IMPRESSION: No nephrolithiasis or filling defects within the opacified renal collecting system or ureters. 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 Other chronic findings as above. Dictated by: Lev De Leon M.D. on 12/26/2023 at 14:20 Approved by: Lev De Leon M.D. on 12/26/2023 at 14:24
== END ==
LOC: CT 12:40
PROVIDERS: PCP Family Medicine; Referring Provider Urology; Visit Provider Urology
DX: N39.0 Urinary tract infection, site not specified (principal); K57.90 Diverticulosis of intestine, part unspecified, without perforation or abscess without bleeding; D25.9 Leiomyoma of uterus, unspecified; N83.201 Unspecified ovarian cyst, right side; M43.17 Spondylolisthesis, lumbosacral region; M51.36 Other intervertebral disc degeneration, lumbar region
CPT/HCPCS: 74178; Q9967

== ENCOUNTER → 2024-06-06 10:06 | Outpatient (CLI) | payer OTHER, SELFPAY ==
[2024-06-06 11:42] LABS: Cancer Antigen 125 7.1 U/mL (0-35)
== END ==
LOC: LAB 10:08
PROVIDERS: PCP Family Medicine; Referring Provider Obstetrics & Gynecology; Visit Provider Obstetrics & Gynecology
DX: N83.201 Unspecified ovarian cyst, right side (principal)
CPT/HCPCS: 36415; 86304

== ENCOUNTER 2024-06-24 06:29 | Day surgery (SDC) | payer OTHER, SELFPAY ==
[2024-06-18 13:00] VITALS: BMI 26.9
[2024-06-24] VITALS (13 sets, daily range): BP systolic 113–160; BP diastolic 56–91; PULSE 61–73; RESP 9–16; TEMP 36.2–36.4; O2SAT 93–100; BMI 26.9
--- NOTE | 2024-06-24 | PATH_ITS ---
Note [facility] Accession Number: [id number] TESTS RESULT FLAG UNITS REF RANGE LAB Clinician Provided Cytology Information No. of containers..01 Other (Miscellaneous) Source: RIGHT OVARIAN CYST FLUID DIAGNOSIS: RIGHT OVARIAN CYST FLUID, ASPIRATION. NEGATIVE FOR MALIGNANT CELLS. HYPOCELLULAR SAMPLE WITH MACROPHAGES, CONSISTENT WITH CYST FLUID CONTENTS. NO EPITHELIAL CELL LINING PRESENT. THIS INTERPRETATION INCLUDES EVALUATION OF A CELL BLOCK. Pathologist ICD10: N83.291, N95.0 Signed out by: Tea Chua MD, Pathologist NPI- [id number] Performed by: Zeus Amaya, Labor Expediter ([facility]) Gross description: 15 CC, YELLOW, CLOUDY RECEIVED: FRESH IN BLUE CAP CONTAINER.VO /VDU 06/25/2024 0639 Local FLAG LEGEND: L-Low Normal,H-High Normal,LL-Alert Low,HH-Alert High <-Panic Low,>-Panic High,A-Abnormal,AA-Critical Abnormal Performed at: [address] [facility], [place] [address] Hilton Li MD, Performed at: [address], [place], [place] [id number] MD Hilton Li MD Phone: [phone]
[2024-06-24] MEDS: ACETAMINOPHEN 325 MG TABLET 975 MG PO (07:15)
--- NOTE | 2024-06-24 07:25 | PM.GYNHP.1 ---
History of Present Illness History of Present Illness Reason for admission: pelvic mass Narrative: Mica Butcher is a 88 year old female 2 para 2 who presents for a laparoscopic bilateral salpingo-oophorectomy due to a complex right ovarian mass. She has had normal tumor markers. We are removing this because she is having intermittent pain. [facility] Medical History (Updated 06/19/24 @ 03:02 by Tayler Bianchi MD) Asymptomatic microscopic hematuria Postmenopause atrophic vaginitis Yeast infection of the vagina History of tobacco use Glaucoma primary, open angle Abnormal skin growth Gastric mass Meningioma Osteopenia (1989) Hypertension (1997) Chicken pox Measles Mumps Hayfever (1969) Rosacea (1994) RLS (restless legs syndrome) (2009) Fractures (1994) Fibroids Colon polyps (1999) Cystic thyroid nodule (2011) Melanoma in situ of lower extremity (2007) Polyp of colon (01/29/15) Surgical History (Updated 12/21/23 @ 00:27 by Tayler Bianchi MD) H/O dilation and curettage Anesthesia History of orthopedic surgery History of melanoma excision (2007) Cataract extraction status, left eye (11/08/17) Cataract extraction status, right eye (11/22/17) Family History Father Heart disease Mother ALS (amyotrophic lateral sclerosis) Sister No problems noted. Social History marital status: household members: spouse Smoking Status: Former smoker alcohol intake: never substance use type: does not use Meds Home Medications and Allergies Home Medications Medication Instructions Recorded Confirmed Type Vitamin D3 1 cap PO DAILY 02/13/18 06/06/24 History latanoprost 0.005 % eye drops 1 drp ophthalmic (eye) BEDTIME 02/13/18 06/06/24 History timolol EYE-BOTH 06/01/23 06/06/24 History estradiol 0.01% (0.1 mg/gram) 1 g vaginal DAILY #42.5 grams 12/29/23 06/06/24 Rx vaginal cream (Estrace) valsartan 40 mg tablet 40 mg PO DAILY #90 tabs 01/22/24 06/24/24 Rx Allergies Allergy/AdvReac Type Severity Reaction Status Date / Time sulfamethoxazole Allergy Intermediate Rash Verified 06/06/24 08:47 [From Sulfamethoxazole-Trimethoprim] trimethoprim Allergy Intermediate Rash Verified 06/06/24 08:47 [From Sulfamethoxazole-Trimethoprim] latex [LATEX] Allergy Unknown Verified 06/06/24 08:47 levofloxacin [LEVOFLOXACIN] Allergy Unknown Verified 06/06/24 08:47 Macrobid Allergy Intermediate Gastrointestinal Uncoded 06/06/24 08:47 Upset/Fatigue gandolium MRI dye Allergy Uncoded 06/06/24 08:47 Exam Narrative Exam Narrative: Generally: A well-developed, well-nourished elderly female, no acute distress Lungs: Clear to auscultation bilaterally Cardiovascular: Regular rate and rhythm Abdomen: Soft. No guarding or rebound tenderness. No scars. No hepatosplenomegaly. No masses palpable. Bimanual exam: Deferred to OR Extremities: No edema Assessment & Plan Assessment & Plan narrative: Assessment: 88-year-old 2 para 2 with a complex left ovarian mass, intermittently symptomatic Plan: Laparoscopic bilateral salpingo-oophorectomy The risks, benefits, and alternatives to the procedure were explained to the patient. The risks including bleeding, infection, injury to bowel, bladder, or ureters. She understands these risks and agrees to proceed. A full par Q was held and consent form was signed. Time-Based Coding :: [TOTAL MINUTES] spent with patient and on the chart (including review of chart, obtaining history, exam, reviewing outside data, placing orders, documenting exam and treatment plan, and counseling patient) on [DATE].
--- NOTE | 2024-06-24 07:28 | PM.PREOP ---
Pre-operative Note Interval Note History & Physical reviewed/Exam performed by Physician: Yes Changes to H&P: No H&P completed within 30 days and has changed as indicated here:: 06/24/24
[2024-06-24] MEDS: LACTATED RINGERS 1,000 ML 42 ML IV (07:32)
[2024-06-24 07:33] LABS: COVID19 -Nasal RAPID Negative (Negative)
--- NOTE | 2024-06-24 08:12 | SUR.OPER ---
Addendum entered by Kareen Jarquin R.N. 06/24/24 08:46: Lithotomy on padded OR bed, head on pillow, arms tucked with drawsheet. Legs secured in padded yellow fins stirrups. Original Note: Lithotomy on padded OR bed, head on pillow, arms secured on padded arm boards at <90 degrees abduction. Legs secured in padded yellow fins stirrups.
--- NOTE | 2024-06-24 09:45 | PM.GYNOP.1 ---
Operative Date/Time/Diagnoses Date of procedure: 06/24/24 Time of procedure: 09:45 Pre-op diagnosis: PARTS FINISHER bleeding Complex right ovarian cyst Post-op diagnosis: same Procedure & Clinicians Procedure: Procedures Operation Date: 06/24/24 07:45 Actual Procedure Side Surgeon p Hysteroscopy D&C Tayler Bianchi MD s Laparoscopic Salpingectomy with oophorectomy Bilateral Talyer Bianchi MD Indications: 88 year old with PARTS FINISHER bleeding and a complex right ovarian cyst. Normal tumor markers Surgeon: Tayler Bianchi Anesthesia Type: General and Local Operative Notes Findings: 10 wk size uterus 6cm fundal intramural fibroid 6cm complex right ovarian cyst Normal tubes Normal left ovary Normal gallbladder Fibrosed liver at edges Normal appendix Thickened endometrial lining Both fallopian tube ostia observed Closure Type: primary Specimen(s): left tube & ovary, right tube & ovary and other (right ovarian cyst fluid to pathology) Applied: catheter (in/out) Estimated blood loss (mL): 5 Blood products transfused: none Procedure in detail: After informed consent was obtained, the patient was taken to the operating room where she was placed in the dorsal supine position. After adequate general endotracheal anesthesia was achieved, she was placed in the dorsal lithotomy position, and prepped and draped in the usual sterile fashion. A time-out was performed. A bivalve speculum was placed into the vagina and the anterior lip of the cervix was grasped with a single-tooth tenaculum. The cervical os was sequentially dilated until the hysteroscope could pass easily into the endometrial cavity. Initial inspection with the hysteroscope revealed both fallopian tube ostia. There was slightly thickened endometrial lining. The hysteroscope was removed. Sharp curettage was performed yielding moderate amount of endometrial curettings. The Zumi uterine manipulator passed easily into the endometrial cavity. The single-tooth tenaculum was removed from the anterior lip of the cervix. The bivalve speculum was removed from the vagina. Attention was then turned to the abdomen where 6 cc of 0.5% Marcaine with epinephrine were injected in the umbilical fold. A 5 mm incision was made. The Veress needle was placed into the peritoneal cavity, and its placement confirmed by aspiration and drop test. The abdominal cavity was insufflated with 3.4 L of CO2. The Veress needle was removed, and a 5 mm trocar was placed without difficulty. Two other incisions were made 4 cm lateral to the midline after 6 cc of 0.5% Marcaine with epinephrine were injected and care was taken to avoid any blood vessels. Two 5 mm incisions were made. Two 5 mm trocars were placed under direct visualization. The probe was used to visualize both ovaries, the gallbladder and liver, and the appendix, with the findings noted above. The right tube and ovary were grasped with an atraumatic grasper. Using the power seal, the infundibulopelvic ligament on the right side was cauterized and cut. The mesosalpinx was cauterized and cut all the way down to the cornua of the uterus. The tube was amputated at the cornua. This was repeated on the patient's left side. The tubes and ovaries were placed into the right lower quadrant. 6 cc of 0.5% Marcaine with epinephrine were injected 2 cm above the pubic symphysis. A 2 cm incision was made. A 12 mm trocar was placed under direct visualization. The endobag was placed through the suprapubic incision and both tubes and ovaries were placed into the bag. The trocar was removed. And the edges of the bag were brought up through the skin. The fascial incision was slightly extended bilaterally. Using a 35 cc syringe with a 20 gauge spinal needle, the cyst was decompressed inside the bag. The fluid was sent for cytology. The bag was then easily pulled through the suprapubic incision. There was no spill. The tubes and ovaries were sent off for specimen. The fascia on the suprapubic incision was closed with 0 Vicryl in a running fashion. The abdomen was re-insufflated. There was no bleeding noted. The incisions were closed with 4-0 Monocryl in a subcuticular fashion. Steri-Strips and Allevyn dressings were placed. The Zumi uterine manipulator was removed from the uterus. Sponge, lap, and instrument counts were correct x2. The patient tolerated the procedure well, and was taken to PACU in stable condition. Complications: none Post-operative Condition: stable Disposition: PACU Plan for aftercare: Home after recovery
== END 2024-06-24 11:15 | disposition home or self-care (01) ==
PROVIDERS: PCP Family Medicine; Referring Provider Obstetrics & Gynecology; Visit Provider Obstetrics & Gynecology
PROC: 0UDB8ZZ Extraction of Endometrium, Via Natural or Artificial Opening Endoscopic (ICD-10-PCS; CPT 58558; principal; 2024-06-24 07:45)
PROC: 0UT74ZZ Resection of Bilateral Fallopian Tubes, Percutaneous Endoscopic Approach (ICD-10-PCS; CPT 58661; 2024-06-24 07:45)
DX: N95.0 Postmenopausal bleeding (principal); Z11.52 Encounter for screening for COVID-19; N83.291 Other ovarian cyst, right side; D25.1 Intramural leiomyoma of uterus
CPT/HCPCS: 58661; 58558; 87635; J0330; J1171; J2405; J2704; J3010; J3490

== ENCOUNTER → 2024-09-12 13:07 | Outpatient (CLI) | payer OTHER, SELFPAY ==
[2024-09-12 13:29] LABS: Add Manual Diff / Slide Review NO; Basophils Absolute Auto 0 /uL (0-100); Basophils Percent Auto 0.5 % (0-2); Eosinophils Absolute Auto 100 /uL (0-450); Eosinophils Percent Auto 1.1 % (2-4); Hematocrit 39.5 % (36-46); Hemoglobin 13.5 g/dL (12.0-16.0); Lymphocytes Absolute Auto 1200 /uL (1100-4500); Lymphocytes Percent Auto 17.5 % (25-40); Mean Corpuscular HGB Conc 34.3 % (30-36); Mean Corpuscular Hemoglobin 31.5 PG (26-34); Monocytes Absolute Auto 900 /uL (0-900); Neutrophils Absolute Auto 4700 /uL (1500-7000); Neutrophils Percent Auto 67.9 % (50-75); Platelet Count 191 X10^3/uL (150-400); Red Blood Cell Count 4.29 X10^6/uL (4.0-5.2); Red Cell Distribution Width 14.5 % (11.6-14.8); White Blood Cell Count 6.9 X10^3/uL (4.5-11.0)
[2024-09-12 13:45] LABS: Alanine Aminotransferase 26 IU/L (<35); Albumin 4.4 g/dL (3.5-5.0); Albumin Globulin Ratio 1.3 (1.0-2.8); Alkaline Phosphatase 59 U/L (38-126); Aspartate Aminotransferase 36 IU/L (14-36); BUN Creatinine Ratio 20.7 (6-22); Bilirubin Total 0.5 mg/dL (0.2-1.3); Blood Urea Nitrogen 19 mg/dL (7-17); Calcium 9.1 mg/dL (8.4-10.2); Carbon Dioxide 27 mmol/L (22-32); Chloride 104 mmol/L (98-107); Estimated Glomerular Filt Rate 60 mL/min (>60); Globulin 3.3 g/dL (1.7-4.1); Glucose 101 mg/dL (80-110); HEMOLYSIS < 15 (0-50); Potassium 4.2 mmol/L (3.4-5.1); Sodium 138 mmol/L (137-145); Total Protein 7.7 g/dL (6.3-8.2)
== END ==
LOC: LAB 13:08
PROVIDERS: PCP Family Medicine; Referring Provider Physician Assistant; Visit Provider Physician Assistant
DX: U07.1 COVID-19 (principal); I10 Essential (primary) hypertension
CPT/HCPCS: 36415; 80053; 85025